=== PATIENT | male | born 1950 | race Asian ===

== ENCOUNTER 2017-09-07 11:42 | Inpatient (IN) | payer OTHER ==
[2017-09-07] MEDS ORDERED: SODIUM CHLORIDE 1,000 ML IV STA ×2 (12:28→13:33)
[2017-09-07 12:58] LABS: BASO % 0.2 % (0-2.0); HEMATOCRIT 45.1 % (35.4-49); HEMOGLOBIN 14.8 GM/dL (11.7-16.9); LYMPH % 9.1 % (8-40); MCH 30.5 pg (25.7-33.7); MCHC 32.9 g/dl (32.0-35.9); MEAN CELL VOLUME 92.9 fl (80-96); MEAN PLT VOLUME 9.3 fl (7.5-11.1); MONO % 7.7 % (3.8-10.2); PLATELET COUNT 98 K/MM3 (134-434); RBC 4.86 M/mm3 (4.00-5.60); RDW 13.5 % (11.9-15.9); WHITE BLOOD COUNT 15.1 K/mm3 (4.0-10.0)
[2017-09-07 13:04] LABS: VENOUS PC02 39.4 mmHg (38-52); VENOUS PH 7.37 (7.32-7.42); VENOUS PO2 33.5 mmHg (28-48)
[2017-09-07] MEDS ORDERED: CLINDAMYCIN 600MG PREMIX IVPB 600 MG/50 ML BAG IVPB ONE ×2 (13:05→13:11)
[2017-09-07 13:19] LABS: ALBUMIN 3.6 g/dl (3.4-5.0); ANION GAP 10 (8-16); BILIRUBIN,TOTAL 1.9 mg/dL (0.2-1.0); BLOOD UREA NITROGEN 33 mg/dL (7-18); CALCIUM 8.9 mg/dL (8.5-10.1); CHLORIDE 101 mmol/L (98-107); CO2 22 mmol/L (21-32); CREATININE 1.5 mg/dL (0.7-1.3); GLUCOSE,RANDOM 157 mg/dL (74-106); SGPT/ALT 21 U/L (12-78); SODIUM 133 mmol/L (136-145); TOT PROT 8.4 g/dl (6.4-8.2)
[2017-09-07 13:21] LABS: ALK PHOS 64 U/L (45-117)
[2017-09-07 13:25] LABS: POTASSIUM 4.7 mmol/L (3.5-5.1); SGOT/AST 29 U/L (15-37)
--- NOTE | 2017-09-07 13:34 | PDOC ---
History of Present Illness - General Chief Complaint: Edema Stated Complaint: SWELLING LEG Time Seen by Provider: 09/07/17 11:53 History Source: Patient Exam Limitations: No Limitations - History of Present Illness Initial Comments: 09/07/17 13:36 66-year-old male presents the ED with complaints of worsening left lower extremity redness swelling and pain for the past 3 days. Patient states was also placed on prednisone recently secondary to spinal stenosis that was recently diagnosed with an MRI of the lumbar spine. Patient does have history of prostate cancer developing a DVT which required anticoagulation therapy then IVC placement. Patient denies chest pain presently, fever, chills, shortness of breath or palpitations. Timing/Duration: getting worse Severity: moderate Associated Symptoms: reports: weakness. denies: fever/chills, nausea/vomiting Past History - Past Medical History Allergies/Adverse Reactions: Allergies Allergy/AdvReac Type Severity Reaction Status Date / Time No Known Allergies Allergy Verified 09/07/17 12:10 Home Medications: Ambulatory Orders Atorvastatin Ca [Lipitor] 10 mg PO HS 09/07/17 Clomiphene Citrate 50 mg PO DAILY 09/07/17 Linaclotide [Linzess] 145 mcg PO DAILY 09/07/17 Oxycodone HCl 5 mg PO DAILY 09/07/17 Prednisone 10 mg PO DAILY 09/07/17 - Suicide/Smoking/Psychosocial Hx Smoking History: Never smoked Have you smoked in the past 12 months: No Information on smoking cessation initiated: No Hx Alcohol Use: No Drug/Substance Use Hx: No Patient Lives Alone: No Lives with/in: spouse/SO Review of Systems - Review of Systems Able to Perform ROS?: Yes Constitutional: No: Symptoms Reported HEENTM: No: Symptoms Reported Respiratory: No: Symptoms reported Cardiac (ROS): No: Symptoms Reported ABD/GI: No: Symptoms Reported : No: Symptoms Reported Musculoskeletal: Yes: Back Pain Integumentary: Yes: Change in Color, Erythema Neurological: No: Symptoms reported Hematologic/Lymphatic: Yes: See HPI *Physical Exam - Vital Signs Last Vital Signs Temp Pulse Resp BP Pulse Ox 98.9 F 102 H 18 122/88 100 09/07/17 12:10 09/07/17 12:10 09/07/17 12:10 09/07/17 12:10 09/07/17 12:10 - Physical Exam General Appearance: Yes: Nourished, Appropriately Dressed. No: Apparent Distress HEENT: negative: Pale Conjunctivae Neck: positive: Supple Respiratory/Chest: positive: Lungs Clear, Normal Breath Sounds. negative: Respiratory Distress, Accessory Muscle Use Cardiovascular: positive: Regular Rhythm, Tachycardia. negative: Murmur Vascular Pulses: Dorsalis-Pedis (R): 2+, Doralis-Pedis (L): 1+ Gastrointestinal/Abdominal: positive: Soft. negative: Tenderness Extremity: positive: Normal Capillary Refill, Normal Range of Motion, Tender ( generalized lower extremity distal of patella), Calf Tenderness (negative Homans ) Integumentary: positive: Erythema (with 2+ nonpitting edema of the left lower extremity. area with increased warmth) Neurologic: positive: Motor Strength /5 ED Treatment Course - LABORATORY CBC & Chemistry Diagram: 09/07/17 12:50 09/07/17 12:50 - ADDITIONAL ORDERS Additional order review: Laboratory Results 09/07/17 12:23 VBG pH 7.37 POC VBG pCO2 39.4 POC VBG pO2 33.5 Mixed VBG HCO3 22.4 - RADIOLOGY Radiology Studies Ordered: Category Date Time Status CHEST X-RAY PORTABLE* [RAD] Stat Radiology 09/07/17 12:23 Ordered DUPLEX VASCUL US-1 LEG [US] Stat Ultrasound 09/07/17 13:05 Ordered Medical Decision Making - Medical Decision Making 09/07/17 12:44 66-year-old male with history of prostate state presents with redness and swelling to the left lower extremity the past 3 days. As per son has been more sedentary recently secondary to low back pain but concerning for DVT due to history. Patient on exam had increased warmth redness and swelling to the left lower extremity along with 1+ decreased pedal pulses to the left foot. Patient ordered for septic workup including IV clindamycin, and duplex arterial and vascular of the left lower extremity, 09/07/17 13:34 Chest x-ray shows no acute pathology. Patient ordered for second bag of IV fluid. Laboratory Tests 09/07/17 09/07/17 09/07/17 12:50 12:50 12:50 WBC 15.1 H Hgb 14.8 Hct 45.1 Plt Count 98 L Neutrophils % 83.0 H Sodium 133 L Potassium 4.7 Chloride 101 Carbon Dioxide 22 Anion Gap 10 BUN 33 H Creatinine 1.5 H Random Glucose 157 H Lactic Acid 2.1 H* Total Bilirubin 1.9 H Troponin I < 0.02 Total Protein 8.4 H 09/07/17 13:58 DVT shows extensive acute DVT in the left lower extremity involving the common femoral, superficial femoral vein extending to and including the popliteal vein. It is undetermined whether this process involves the calf veins. There is no Dangelo's cyst. 09/07/17 14:[address] Skaggs and accepted to service to [facility]. He states that he will consult vascular oncology *DC/Admit/Observation/Transfer Diagnosis at time of Disposition: DVT (deep venous thrombosis) Sepsis Qualifiers: Sepsis type: sepsis due to unspecified organism Qualified Code(s): A41.9 - Sepsis, unspecified organism Cellulitis Qualifiers: Site of cellulitis: extremity Site of cellulitis of extremity: lower extremity - Discharge Dispostion Admit: Yes - Referrals - Patient Instructions - Post Discharge Activity
[2017-09-07 13:39] LABS: URINE APPEARANCE SLCLOUDY; URINE BILIRUBIN NEGATIVE (NEGATIVE); URINE BLOOD 2+ (NEGATIVE); URINE COLOR YELLOW; URINE GLUCOSE (UA) 1+ (NEGATIVE); URINE KETONE TRACE (NEGATIVE); URINE LEUK ESTERASE NEGATIVE (NEGATIVE); URINE NITRITE NEGATIVE (NEGATIVE); URINE UROBILINOGEN NEGATIVE mg/dL (0.2-1.0)
[2017-09-07 13:46] LABS: URINE PROTEIN 1+ (NEGATIVE)
[2017-09-07 13:48] LABS: GRANULAR CASTS 7 /lpf; URINE MUCUS RARE
[2017-09-07 13:49] LABS: INR 1.06 (0.82-1.09)
[2017-09-07 13:51] LABS: ACTIVATED PTT 21.9 SECONDS (26.9-34.4)
[2017-09-07] MEDS ORDERED: ENOXAPARIN NA (PORCINE) 120 MG/0.8 ML DISP.SYRIN SQ SCH (14:15)
[2017-09-07] MEDS ORDERED: ENOXAPARIN NA (PORCINE) 30 MG/0.3 ML DISP.SYRIN SQ ONE (14:17)
[2017-09-07] MEDS ORDERED: ENOXAPARIN NA (PORCINE) 100 MG/1 ML DISP.SYRIN SQ ONE (14:17)
[2017-09-07] MEDS ORDERED: morphine CARPU-JECT 8 MG/1 ML DISP.SYRIN IVPUSH PRN (14:43)
[2017-09-07] MEDS ORDERED: ACETAMINOPHEN 325 MG TABLET (FP) PO PRN (14:43)
--- NOTE | 2017-09-07 14:54 | HP ---
Admitting History and Physical - Primary Care Physician PCP: Dayton Skaggs - Admission Chief Complaint: pain/ heaviness in legs History of Present Illness: 66-year-old male send the ED with complaints of worsening left lower extremity redness swelling and pain pt recently seen in office for back pain urgent mri ls spine showed sever L4-5 Stenosis pt called me last night -- says legs are now getting swollen and heavier i advised to come to er right away- concern of dvt as he h/o dvt-- on right lower extremity- 2008--also filter was placed. and prostate cancer Patient denies chest pain presently, fever, chills, shortness of breath or palpitations. u/s confirmed extensive dvt left side with cellulitis -- given lovenox in er as well as clindamycin pt to be admitted to hospital lab work also showed increased wbcs/ lactic acid pt seen by me in er - discussed with er physician also. History Source: Patient Limitations to Obtaining History: No Limitations - Past Medical History Cardiovascular: No: HTN Heme/Onc: Yes: Other (dvt/ prostate ca) - Past Surgical History Additional Past Surgical History: ivc filter - Smoking History Smoking history: Current some day smoker Have you smoked in the past 12 months: Yes - Alcohol/Substance Use Hx Alcohol Use: No - Social History Usual Living Arrangement: Yes: With Spouse Home Medications - Allergies Allergies/Adverse Reactions: Allergies Allergy/AdvReac Type Severity Reaction Status Date / Time No Known Allergies Allergy Verified 09/07/17 12:10 - Home Medications Home Medications: Ambulatory Orders Atorvastatin Ca [Lipitor] 10 mg PO HS 09/07/17 Clomiphene Citrate 50 mg PO DAILY 09/07/17 Linaclotide [Linzess] 145 mcg PO DAILY 09/07/17 Oxycodone HCl 5 mg PO DAILY 09/07/17 Prednisone 10 mg PO DAILY 09/07/17 Family Disease History - Family Disease History Family History: Unremarkable Review of Systems - Review of Systems Constitutional: reports: Weakness Eyes: reports: No Symptoms HENT: reports: No Symptoms. denies: Gingival Bleeding Neck: reports: No Symptoms Cardiovascular: reports: No Symptoms Respiratory: reports: No Symptoms Gastrointestinal: reports: Constipation Musculoskeletal: reports: Back Pain, Extremity Pain Integumentary: reports: Erythema Neurological: reports: No Symptoms Psychiatric: reports: No Symptoms Physical Examination Vital Signs: Vital Signs Temperature 98.9 F 09/07/17 12:10 Pulse Rate 99 H 09/07/17 12:12 Respiratory Rate 18 09/07/17 12:10 Blood Pressure 122/88 09/07/17 12:10 O2 Sat by Pulse Oximetry (%) 100 09/07/17 12:12 Constitutional: Yes: No Distress, Calm Neck: Yes: Supple Cardiovascular: Yes: Regular Rate and Rhythm Respiratory: Yes: CTA Bilaterally Gastrointestinal: Yes: Normal Bowel Sounds, Soft Extremities: Yes: Erythema (left lower extremitiy) Edema: LLE: 2+ Peripheral Pulses WNL: Yes Neurological: Yes: Alert Psychiatric: Yes: Alert Labs: CBC, BMP 09/07/17 12:50 09/07/17 12:50 Imaging - Results Chest X-ray: Report Reviewed Ultrasound: Report Reviewed Problem List - Problems (1) Elevated lactic acid level Code(s): R79.89 - OTHER SPECIFIED ABNORMAL FINDINGS OF BLOOD CHEMISTRY (2) Dehydration Code(s): E86.0 - DEHYDRATION (3) Renal insufficiency, mild Code(s): N28.9 - DISORDER OF KIDNEY AND URETER, UNSPECIFIED (4) Cellulitis Code(s): L03.90 - CELLULITIS, UNSPECIFIED Qualifiers: Site of cellulitis: extremity Site of cellulitis of extremity: lower extremity (5) DVT (deep venous thrombosis) Code(s): I82.409 - ACUTE EMBOLISM AND THOMBOS UNSP DEEP VN UNSP LOWER EXTREMITY (6) Prostate CA Code(s): C61 - MALIGNANT NEOPLASM OF PROSTATE (7) Spinal stenosis Code(s): M48.00 - SPINAL STENOSIS, SITE UNSPECIFIED (8) Constipation Code(s): K59.00 - CONSTIPATION, UNSPECIFIED Assessment/Plan admit pain control fluids repeat lactic acid level abx- change to rocephin - concern for c diff lovenox + coumadin hematology consult laxatives neuro surgical consult for spinal stenosis discussed in detail with pt / son. will follow time spend - 40 min in examining/ documenting and coordinating care
[2017-09-07] MEDS ORDERED: BISACODYL 10 MG SUPP.RECT PR ONE (15:53)
--- NOTE | 2017-09-07 16:56 | EKG ---
Test Reason : Blood Pressure : / mmHG Vent. Rate : 103 BPM Atrial Rate : 103 BPM P-R Int : 124 ms QRS Dur : 074 ms QT Int : 302 ms P-R-T Axes : 025 -01 075 degrees QTc Int : 395 ms SINUS TACHYCARDIA NONSPECIFIC T WAVE ABNORMALITY ABNORMAL ECG NO PREVIOUS ECGS AVAILABLE Confirmed by GOLDY BAZAN MD ([id number]) on 09/07/2017 4:56:32 PM Referred By: Confirmed By:GOLDY BAZAN MD
[2017-09-07] MEDS: D5-1/2NS+20 MEQ KCL - 20 MEQ/1,000 ML INFUS.BAG IV SCH (19:09)
[2017-09-07] MEDS ORDERED: CEFTRIAXONE 2 GM/100 ML BAG IVPB ONE (19:10)
[2017-09-07] MEDS: CEFTRIAXONE 2 GM in DEXTROSE 5%-WATER - 100 ML IVPB SCH (19:11)
[2017-09-07 20:35] VITALS: BMI 28.0
[2017-09-07] MEDS: WARFARIN NA 5 MG TABLET (UD) PO SCH (21:20)
[2017-09-07] MEDS: DOCUSATE SODIUM 100 MG CAPSULE (FP) PO SCH (21:21)
[2017-09-07] MEDS: ATORVASTATIN CA 10 MG TABLET (FP) PO SCH (21:22)
[2017-09-08] MEDS ORDERED: PT OWN MED DRAWER 7, Y5N ONE (02:52)
[2017-09-08] MEDS: D5-1/2NS+20 MEQ KCL - 20 MEQ/1,000 ML INFUS.BAG IV SCH ×3 (03:00→16:36)
[2017-09-08] MEDS: DOCUSATE SODIUM 100 MG CAPSULE (FP) PO SCH ×3 (05:56→21:40)
[2017-09-08] MEDS: oxyCODONE HCL 5 MG TABLET PO PRN ×2 (06:00→16:31)
[2017-09-08 08:32] LABS: HEMATOCRIT 39.1 % (35.4-49); HEMOGLOBIN 12.8 GM/dL (11.7-16.9); MCH 30.5 pg (25.7-33.7); MCHC 32.7 g/dl (32.0-35.9); MEAN CELL VOLUME 93.2 fl (80-96); MEAN PLT VOLUME 9.5 fl (7.5-11.1); PLATELET COUNT 106 K/MM3 (134-434); RBC 4.19 M/mm3 (4.00-5.60); WHITE BLOOD COUNT 12.4 K/mm3 (4.0-10.0)
[2017-09-08 08:46] LABS: INR 1.12 (0.82-1.09); PROTHROMBIN TIME (PATIENT) 12.6 SEC (9.98-11.88)
[2017-09-08 09:06] LABS: ALBUMIN 2.9 g/dl (3.4-5.0); ANION GAP 8 (8-16); BLOOD UREA NITROGEN 22 mg/dL (7-18); CALCIUM 8.3 mg/dL (8.5-10.1); CHLORIDE 106 mmol/L (98-107); CO2 22 mmol/L (21-32); CREATININE 1.1 mg/dL (0.7-1.3); GLUCOSE,RANDOM 130 mg/dL (74-106); MAGNESIUM 2.2 mg/dL (1.8-2.4); POTASSIUM 3.9 mmol/L (3.5-5.1); SGOT/AST 16 U/L (15-37); SGPT/ALT 19 U/L (12-78); SODIUM 136 mmol/L (136-145)
[2017-09-08 09:07] LABS: ALK PHOS 51 U/L (45-117); BILIRUBIN,TOTAL 1.3 mg/dL (0.2-1.0); TOT PROT 6.7 g/dl (6.4-8.2)
[2017-09-08] MEDS: CEFTRIAXONE 2 GM in DEXTROSE 5%-WATER - 100 ML IVPB SCH (09:40)
[2017-09-08] MEDS: POLYETHYLENE GLYCOL 3350 119 GM BTL PO SCH (09:40)
[2017-09-08] MEDS: ENOXAPARIN NA (PORCINE) 100 MG/1 ML DISP.SYRIN SQ SCH ×2 (09:40→21:40)
[2017-09-08] MEDS ORDERED: CLOMIPHENE CITRATE 50 MG PO SCH (10:00)
[2017-09-08 10:37] LABS: ACANTHOCYTES 0; ANISOCYTOSIS 0; HELMET CELLS 0; HOWELL-JOLLY BODIES 0; MACROCYTOSIS 0; OVALOCYTE 0; PLATELET ESTIMATE DECREASED; SICKELED CELLS 0; TARGET CELLS 0; TEAR DROP CELLS 0; TOXIC GRANULATION 0
--- NOTE | 2017-09-08 11:07 | PN ---
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
--- NOTE | 2017-09-08 11:37 | PN ---
Progress Note (short form) - Note Progress Note: pt feels better decreased pain. heaviness in legs persists c/c - constipation. denies cp/ sob/ abd pain. back pain better Vital Signs Temp 98.8 F 09/08/17 06:00 Pulse 90 09/08/17 06:00 Resp 16 09/08/17 06:00 BP 127/79 09/08/17 06:00 Pulse Ox 98 09/07/17 20:40 Intake & Output 09/07/17 09/07/17 09/08/17 11:59 23:59 11:59 Intake Total 1000 Balance 1000 Weight 195 lb 7 oz Intake: IV 1000 D5-1/2NS+20 MEQ KCL - 20 1000 meq In 1,000 ml @ 100 mls /hr IV ASDIR [facility] Rx#: [id number] Other: Voiding Method Urinal Urinal Bowel Movement No Height 5 ft 10 in Body Mass Index (BMI) 28.0 Weight Measurement Method Built in [facility] Active Medications Acetaminophen (Tylenol -) 650 mg PO Q4H PRN PRN Reason: FEVER OR PAIN Atorvastatin Calcium (Lipitor -) 10 mg PO HS [facility] Last Admin: 09/07/17 21:22 Dose: Not Given Docusate Sodium (Colace -) 100 mg PO TID [facility] Last Admin: 09/08/17 05:56 Dose: 100 mg Enoxaparin Sodium (Lovenox -) 100 mg SQ BID [facility] Last Admin: 09/08/17 09:40 Dose: 100 mg Potassium Chloride/Dextrose/Sod Cl (D5-1/2ns+20 Meq Kcl -) 20 meq in 1,000 mls @ 100 mls/hr IV ASDIR [facility] [place] Last Admin: 09/08/17 03:00 Dose: 100 mls/hr Ceftriaxone Sodium 2 gm/ (Dextrose) 100 mls @ 200 mls/hr IVPB DAILY [facility] [place] Last Admin: 09/08/17 09:40 Dose: 200 mls/hr Morphine Sulfate (Morphine Sulfate) 2 mg IVPUSH Q4H PRN PRN Reason: BACK PAIN Non-Formulary Medication (Clomiphene Citrate [Clomiphene Citrate]) 50 mg PO DAILY [facility] Oxycodone HCl (Roxicodone -) 10 mg PO Q4H PRN PRN Reason: PAIN Last Admin: 09/08/17 06:00 Dose: 10 mg Polyethylene Glycol (Miralax (For Daily Use) -) 17 gm PO DAILY [facility] [place] Last Admin: 09/08/17 09:40 Dose: 17 gm Warfarin Sodium (Coumadin -) 5 mg PO DAILY@1800 [facility] Last Admin: 09/07/17 21:20 Dose: 5 mg CBC, BMP 09/08/17 07:00 09/08/17 07:00 Physical Examination Constitutional: Yes: No Distress, Calm/ comfortable Neck: Yes: Supple/ no jvd Cardiovascular: Yes: Regular Rate and Rhythm Respiratory: Yes: CTA Bilaterally Gastrointestinal: Yes: Normal Bowel Sounds, Soft Extremities: Yes: Erythema (left lower extremitiy)/ swelling + Edema: LLE: 2+ Peripheral Pulses WNL: Yes Neurological: Yes: Alert Psychiatric: Yes: Alert Imaging - Results Chest X-ray: Report Reviewed Ultrasound: Report Reviewed Assessment/Plan acute left lower extremity dvt with h/o dvt in right leg with h/o prostate ca pain control fluids abx- lovenox + coumadin hematology consult--pending laxatives neuro surgical consult for spinal stenosis-- reviewed / discussed daily oob - chair physical therapy will follow Problem List - Problems (1) Elevated lactic acid level Code(s): R79.89 - OTHER SPECIFIED ABNORMAL FINDINGS OF BLOOD CHEMISTRY (2) Dehydration Code(s): E86.0 - DEHYDRATION (3) Renal insufficiency, mild Code(s): N28.9 - DISORDER OF KIDNEY AND URETER, UNSPECIFIED (4) Cellulitis Code(s): L03.90 - CELLULITIS, UNSPECIFIED Qualifiers: Site of cellulitis: extremity Site of cellulitis of extremity: lower extremity (5) DVT (deep venous thrombosis) Code(s): I82.409 - ACUTE EMBOLISM AND THOMBOS UNSP DEEP VN UNSP LOWER EXTREMITY (6) Prostate CA Code(s): C61 - MALIGNANT NEOPLASM OF PROSTATE (7) Spinal stenosis Code(s): M48.00 - SPINAL STENOSIS, SITE UNSPECIFIED (8) Constipation Code(s): K59.00 - CONSTIPATION, UNSPECIFIED
--- NOTE | 2017-09-08 15:17 | CONSULT ---
Consult Consult Specialty:: hematology Referred by:: Reason for Consultation:: DVT - History of Present Illness History of Present Illness: 66-year-old male presents the ED with complaints of worsening left lower extremity redness swelling and pain for the past 3 days. Patient states was also placed on prednisone recently secondary to spinal stenosis that was recently diagnosed with an MRI of the lumbar spine. Patient does have history of prostate cancer developing a DVT which required anticoagulation therapy then IVC placement. Patient denies chest pain presently, fever, chills, shortness of breath or palpitations. - History Source History Provided By: Patient, Medical Record Limitations to Obtaining History: No Limitations - Past Medical History Cardio/Vascular: No: HTN - Alcohol/Substance Use Hx Alcohol Use: No - Smoking History Smoking history: Never smoked Have you smoked in the past 12 months: No Home Medications - Allergies Allergies/Adverse Reactions: Allergies Allergy/AdvReac Type Severity Reaction Status Date / Time No Known Allergies Allergy Verified 09/07/17 12:10 - Home Medications Home Medications: Ambulatory Orders Atorvastatin Ca [Lipitor] 10 mg PO HS 09/07/17 Clomiphene Citrate 50 mg PO DAILY 09/07/17 Linaclotide [Linzess] 145 mcg PO DAILY 09/07/17 Oxycodone HCl 5 mg PO DAILY 09/07/17 Prednisone 10 mg PO DAILY 09/07/17 Review of Systems - Review of Systems Constitutional: denies: Chills, Diaphoresis, Fever, Unintentional Wgt. Loss, Weakness Neck: reports: No Symptoms Cardiovascular: reports: No Symptoms. denies: Chest Pain Respiratory: denies: SOB, SOB on Exertion, Wheezing Gastrointestinal: reports: Constipation. denies: Rectal Bleeding Musculoskeletal: reports: Back Pain Integumentary: reports: No Symptoms Neurological: reports: No Symptoms Physical Exam Vital Signs: Vital Signs Temperature 98.8 F 09/08/17 06:00 Pulse Rate 90 09/08/17 06:00 Respiratory Rate 16 09/08/17 06:00 Blood Pressure 127/79 09/08/17 06:00 O2 Sat by Pulse Oximetry (%) 98 09/07/17 20:40 Constitutional: Yes: Well Nourished, No Distress, Calm Eyes: Yes: Conjunctiva Clear HENT: Yes: Atraumatic, Normocephalic Neck: Yes: Supple, Trachea Midline Cardiovascular: Yes: Regular Rate and Rhythm Respiratory: Yes: Regular, CTA Bilaterally Gastrointestinal: Yes: Soft Extremities: Yes: Calf Tenderness, Other (LLE>RLE. asymmetry Swollen, mild tenderness) Edema: Yes Edema: LLE: 2+ Labs: CBC, BMP 09/08/17 07:00 09/08/17 07:00 Imaging - Results Ultrasound: Report Reviewed Problem List - Problems (1) DVT (deep venous thrombosis) Code(s): I82.409 - ACUTE EMBOLISM AND THOMBOS UNSP DEEP VN UNSP LOWER EXTREMITY Qualifiers: DVT location: lower extremity Laterality: left (2) Prostate CA Code(s): C61 - MALIGNANT NEOPLASM OF PROSTATE (3) Renal insufficiency, mild Code(s): N28.9 - DISORDER OF KIDNEY AND URETER, UNSPECIFIED (4) Sepsis Code(s): A41.9 - SEPSIS, UNSPECIFIED ORGANISM Qualifiers: Sepsis type: sepsis due to unspecified organism Qualified Code(s): A41.9 - Sepsis, unspecified organism (5) Thrombocytopenia Code(s): D69.6 - THROMBOCYTOPENIA, UNSPECIFIED Assessment/Plan History of Right LE DVT in 2008 s/p RPR for prostate Ca [place] [facility] ( s/p Coumadin for 6m and also an IVC filter ) h/o Prostate ca s/p RPR in 2008 and last PSA as per pt is 0 (follows at [facility]) 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 Leucocytosis/Thrombocytopenia Rec: Vascular c/s given the extensive DVT will c/w systemic AC with Heparin to Coumadin, INR monitoring, might need to hold if any procedures planned, might consider NOACs ( can do this in the OP setting) Etiology : uncertain ,?immobility from his pain , ?underlying hypercoag status ( to be w/u as an OP, now already on full ac) ?malignancy , will re-check PSA, CT scan a/p, also there are reports in literature suggesting clomifene which is used as an alternative to testosterone therapy for stimulating the endogenous androgen production pathway can also be a cause, therefore advised pt for now to hold off until he sees his doctor. IVF prior to CT Duration of AC : Would consider that he would need indefinite AC taking into consideration this is a second episode. would need to repeat an US in about a few days post d/c. f/u : Family (pt and ) works at [facility] , all his Oncological care is at [facility] ( Surg[facility]c and MedOnc) , they were advised to inform their physicians about the admission and also they will see a benign rn wound at [facility]. Leucocytosis/Thrombocytopenia: could be reactive and consumptive respectively, will continue to monitor prior to ordering other w/u. Not HIT. discussed the plan with pt / ( clinical lab researcher) /daughter (RN)/ son (Med student) alexis RN will follow
[2017-09-08] MEDS: WARFARIN NA 5 MG TABLET (UD) PO SCH (17:54)
[2017-09-08] MEDS: ATORVASTATIN CA 10 MG TABLET (FP) PO SCH (21:40)
[2017-09-09] MEDS: D5-1/2NS+20 MEQ KCL - 20 MEQ/1,000 ML INFUS.BAG IV SCH ×2 (01:45→09:37)
[2017-09-09] MEDS: DOCUSATE SODIUM 100 MG CAPSULE (FP) PO SCH ×3 (06:11→21:22)
[2017-09-09 08:31] LABS: HEMATOCRIT 40.9 % (35.4-49); HEMOGLOBIN 13.3 GM/dL (11.7-16.9); MCH 30.3 pg (25.7-33.7); MCHC 32.4 g/dl (32.0-35.9); MEAN CELL VOLUME 93.4 fl (80-96); MEAN PLT VOLUME 9.1 fl (7.5-11.1); PLATELET COUNT 142 K/MM3 (134-434); RBC 4.38 M/mm3 (4.00-5.60); RDW 13.2 % (11.9-15.9); WHITE BLOOD COUNT 12.1 K/mm3 (4.0-10.0)
[2017-09-09 09:00] LABS: ALK PHOS 52 U/L (45-117); ANION GAP 10 (8-16); BILIRUBIN,TOTAL 1.2 mg/dL (0.2-1.0); BLOOD UREA NITROGEN 15 mg/dL (7-18); CALCIUM 8.7 mg/dL (8.5-10.1); CHLORIDE 105 mmol/L (98-107); CO2 24 mmol/L (21-32); CREATININE 1.2 mg/dL (0.7-1.3); GLUCOSE,RANDOM 129 mg/dL (74-106); LDH 210 U/L (87-241); POTASSIUM 4.2 mmol/L (3.5-5.1); SGOT/AST 15 U/L (15-37); SGPT/ALT 22 U/L (12-78); SODIUM 139 mmol/L (136-145); TOT PROT 6.9 g/dl (6.4-8.2)
[2017-09-09 09:06] LABS: INR 1.23 (0.82-1.09); PROTHROMBIN TIME (PATIENT) 13.9 SEC (9.98-11.88)
[2017-09-09 09:21] LABS: BILIRUBIN,DIRECT 0.3 mg/dL (0.0-0.2)
[2017-09-09] MEDS ORDERED: PT OWN MED DRAWER 7, Y5N ONE (09:34)
[2017-09-09] MEDS: POLYETHYLENE GLYCOL 3350 119 GM BTL PO SCH (09:35)
[2017-09-09] MEDS: ENOXAPARIN NA (PORCINE) 100 MG/1 ML DISP.SYRIN SQ SCH (09:36)
[2017-09-09] MEDS: CEFTRIAXONE 2 GM in DEXTROSE 5%-WATER - 100 ML IVPB SCH (09:36)
[2017-09-09] MEDS ORDERED: SODIUM PHOSPHATE/NA BIPHOS 133 ML ENEMA PR PRN (10:13)
--- NOTE | 2017-09-09 10:22 | PN ---
Progress Note (short form) - Note Progress Note: patient seen and examined slight improvement heaviness in the legs persists Back pain much better Discussed with oncologist--CT abdomen and pelvis was ordered On Lovenox and Coumadin Chief complaint constipation and denies chest pain or shortness of breath Vital Signs Temp 98.8 F 09/09/17 08:13 Pulse 88 09/09/17 08:13 Resp 18 09/09/17 08:13 BP 121/75 09/09/17 08:13 Pulse Ox 98 09/07/17 20:40 Intake & Output 09/08/17 09/08/17 09/09/17 11:59 23:59 11:59 Intake Total 1000 1400 1200 Balance 1000 1400 1200 Intake: IV 1000 1100 1200 D5-1/2NS+20 MEQ KCL - 20 1000 1100 1200 meq In 1,000 ml @ 100 mls /hr IV ASDIR [facility] Rx#: [id number] IVPB 100 Oral 200 Other: Voiding Method Urinal Urinal Urinal Bowel Movement No Active Medications Acetaminophen (Tylenol -) 650 mg PO Q4H PRN PRN Reason: FEVER OR PAIN Atorvastatin Calcium (Lipitor -) 10 mg PO HS [facility] Last Admin: 09/08/17 21:40 Dose: 10 mg Docusate Sodium (Colace -) 100 mg PO TID [facility] Last Admin: 09/09/17 06:11 Dose: 100 mg Enoxaparin Sodium (Lovenox -) 100 mg SQ BID [facility] Last Admin: 09/09/17 09:36 Dose: 100 mg Potassium Chloride/Dextrose/Sod Cl (D5-1/2ns+20 Meq Kcl -) 20 meq in 1,000 mls @ 100 mls/hr IV ASDIR [facility] Last Admin: 09/09/17 09:37 Dose: 100 mls/hr Ceftriaxone Sodium 2 gm/ (Dextrose) 100 mls @ 200 mls/hr IVPB DAILY [facility] Last Admin: 09/09/17 09:36 Dose: 200 mls/hr Morphine Sulfate (Morphine Sulfate) 2 mg IVPUSH Q4H PRN PRN Reason: BACK PAIN Non-Formulary Medication (Clomiphene Citrate [Clomiphene Citrate]) 50 mg PO DAILY [facility] Non-Formulary Medication (Patient's Own Med) 1 each PO DAILY [facility] Oxycodone HCl (Roxicodone -) 10 mg PO Q4H PRN PRN Reason: PAIN Last Admin: 09/08/17 16:31 Dose: 10 mg Polyethylene Glycol (Miralax (For Daily Use) -) 17 gm PO DAILY [facility] Last Admin: 09/09/17 09:35 Dose: 17 gm Sodium Phosphate (Fleet Adult Rectal Enema -) 133 ml [place] DAILY PRN PRN Reason: CONSTIPATION Warfarin Sodium (Coumadin -) 5 mg PO DAILY@1800 [facility] Last Admin: 09/08/17 17:54 Dose: 5 mg CBC, BMP 09/09/17 07:45 09/09/17 07:45 Microbiology 09/07/17 13:08 Blood Culture - Preliminary Blood - Peripheral Venous NO GROWTH OBTAINED AFTER 24 HOURS, INCUBATION TO CONTINUE FOR 4 DAYS. 09/07/17 13:08 Blood Culture - Preliminary Blood - Peripheral Venous NO GROWTH OBTAINED AFTER 24 HOURS, INCUBATION TO CONTINUE FOR 4 DAYS. Physical Examination Constitutional: Yes: No Distress, Calm/ comfortable Neck: Yes: Supple/ no jvd Cardiovascular: Yes: Regular Rate and Rhythm Respiratory: Yes: CTA Bilaterally Gastrointestinal: Yes: Normal Bowel Sounds, Soft Extremities: Yes: Erythema (left lower extremity)/ swelling + Edema: LLE: 2+ Peripheral Pulses WNL: Yes Neurological: Yes: Alert Psychiatric: Yes: Alert Imaging - Results Chest X-ray: Report Reviewed Ultrasound: Report Reviewed Assessment/Plan acute left lower extremity dvt with h/o dvt in right leg with h/o prostate ca pain control abx- lovenox + coumadin hematology on case laxatives Fleet Enema when necessary linzess CT abdomen and pelvis ordered by drilling manager Due to extensive DVT--- will check for pulmonary embolism also although patient has no shortness of breath. daily oob - chair physical therapy vascular consult pending will follow Problem List - Problems (1) Elevated lactic acid level Code(s): R79.89 - OTHER SPECIFIED ABNORMAL FINDINGS OF BLOOD CHEMISTRY (2) Dehydration Code(s): E86.0 - DEHYDRATION (3) Renal insufficiency, mild Code(s): N28.9 - DISORDER OF KIDNEY AND URETER, UNSPECIFIED (4) Cellulitis Code(s): L03.90 - CELLULITIS, UNSPECIFIED Qualifiers: Site of cellulitis: extremity Site of cellulitis of extremity: lower extremity (5) DVT (deep venous thrombosis) Code(s): I82.409 - ACUTE EMBOLISM AND THOMBOS UNSP DEEP VN UNSP LOWER EXTREMITY Qualifiers: DVT location: lower extremity Laterality: left (6) Prostate CA Code(s): C61 - MALIGNANT NEOPLASM OF PROSTATE (7) Spinal stenosis Code(s): M48.00 - SPINAL STENOSIS, SITE UNSPECIFIED (8) Constipation Code(s): K59.00 - CONSTIPATION, UNSPECIFIED
[2017-09-09] MEDS: oxyCODONE HCL 5 MG TABLET PO PRN (10:35)
--- NOTE | 2017-09-09 11:08 | CONSULT ---
Consult Consult Specialty:: VAscular Surgery - History of Present Illness Chief Complaint: Left lower ext swelling. DVT on US - History Source Limitations to Obtaining History: No Limitations - Past Medical History Cardio/Vascular: No: HTN - Alcohol/Substance Use Hx Alcohol Use: No - Smoking History Smoking history: Never smoked Have you smoked in the past 12 months: No Home Medications - Allergies Allergies/Adverse Reactions: Allergies Allergy/AdvReac Type Severity Reaction Status Date / Time No Known Allergies Allergy Verified 09/07/17 12:10 - Home Medications Home Medications: Ambulatory Orders Atorvastatin Ca [Lipitor] 10 mg PO HS 09/07/17 Clomiphene Citrate 50 mg PO DAILY 09/07/17 Linaclotide [Linzess] 145 mcg PO DAILY 09/07/17 Oxycodone HCl 5 mg PO DAILY 09/07/17 Prednisone 10 mg PO DAILY 09/07/17 Review of Systems - Review of Systems Constitutional: reports: No Symptoms Eyes: reports: No Symptoms HENT: reports: No Symptoms Neck: reports: No Symptoms Cardiovascular: reports: No Symptoms Respiratory: reports: No Symptoms Gastrointestinal: reports: No Symptoms Genitourinary: reports: No Symptoms Breasts: reports: No Symptoms Reported Musculoskeletal: reports: Extremity Pain Integumentary: reports: No Symptoms Neurological: reports: No Symptoms Endocrine: reports: No Symptoms Hematology/Lymphatic: reports: No Symptoms Psychiatric: reports: No Symptoms Physical Exam Vital Signs: Vital Signs Temperature 98.8 F 09/09/17 08:13 Pulse Rate 88 09/09/17 08:13 Respiratory Rate 18 09/09/17 08:13 Blood Pressure 121/75 09/09/17 08:13 O2 Sat by Pulse Oximetry (%) 98 09/07/17 20:40 Constitutional: Yes: Well Nourished Eyes: Yes: WNL HENT: Yes: WNL Neck: Yes: WNL Cardiovascular: Yes: WNL Respiratory: Yes: WNL Gastrointestinal: Yes: WNL Musculoskeletal: Yes: WNL Extremities: Yes: WNL Edema: Yes Edema: LLE: 2+ Integumentary: Yes: WNL Neurological: Yes: WNL ...Motor Strength: WNL Psychiatric: Yes: WNL Labs: CBC, BMP 09/09/17 07:45 09/09/17 07:45 Imaging - Results Ultrasound: Report Reviewed, Image Reviewed Problem List - Problems (1) DVT (deep venous thrombosis) Code(s): I82.409 - ACUTE EMBOLISM AND THOMBOS UNSP DEEP VN UNSP LOWER EXTREMITY Qualifiers: DVT location: lower extremity Laterality: left Assessment/Plan LLE DVT 1. This is the pt's second episode. History of prostate cancer. Developed DVT in past and IVC filter is in place. Rec AC, probably at this point for life. 2. Leg elevation. -----> ambulation. Jose Logan DO
--- NOTE | 2017-09-09 16:42 | PN ---
Progress Note (short form) - Note Progress Note: Pt seen and examined. feels better than yesterday he says, seen by vascular. daughter at bedside. O/E: Constitutional: Yes: Well Nourished, No Distress, Calm Eyes: Yes: Conjunctiva Clear HENT: Yes: Atraumatic, Normocephalic Neck: Yes: Supple, Trachea Midline Cardiovascular: Yes: Regular Rate and Rhythm Respiratory: Yes: Regular, CTA Bilaterally Gastrointestinal: Yes: Soft Extremities: Yes: Calf Tenderness, Other (LLE>RLE. asymmetry Swollen, mild tenderness) Edema: Yes Edema: LLE: 2+, no signs of phlegmasia Last Vital Signs Temp Pulse Resp BP Pulse Ox 98.4 F 90 18 124/76 98 09/09/17 15:46 09/09/17 15:46 09/09/17 15:46 09/09/17 15:46 09/07/17 20:40 CBC, BMP 09/09/17 07:45 09/09/17 07:45 Current Medications Generic Name Dose Route Start Last Admin Trade Name Freq PRN Reason Stop Dose Admin Acetaminophen 650 mg 09/07/17 14:43 09/09/17 10:35 Tylenol - PO 650 mg Q4H PRN Administration FEVER OR PAIN Atorvastatin Calcium 10 mg 09/07/17 22:00 09/08/17 21:40 Lipitor - PO 10 mg HS TERESITA Administration Docusate Sodium 100 mg 09/07/17 22:00 09/09/17 15:13 Colace - PO 100 mg TID TERESITA Administration Enoxaparin Sodium 100 mg 09/08/17 10:00 09/09/17 09:36 Lovenox - SQ 100 mg BID TERESITA Administration Potassium Chloride/Dextrose/Sod Cl 20 meq in 1,000 mls @ 100 mls/hr 09/07/17 14:45 09/09/17 09:37 D5-1/2ns+20 Meq Kcl - IV 100 mls/hr ASDIR TERESITA Administration Ceftriaxone Sodium 2 gm/ 100 mls @ 200 mls/hr 09/07/17 15:00 09/09/17 09:36 Dextrose IVPB 200 mls/hr DAILY TERESITA Administration Morphine Sulfate 2 mg 09/07/17 14:43 Morphine Sulfate IVPUSH Q4H PRN BACK PAIN Non-Formulary Medication 1 each 09/09/17 10:30 Patient's Own Med PO DAILY TERESITA Oxycodone HCl 10 mg 09/07/17 14:43 09/09/17 10:35 Roxicodone - PO 10 mg Q4H PRN Administration PAIN Polyethylene Glycol 17 gm 09/08/17 10:00 09/09/17 09:35 Miralax (For Daily Use) - PO 17 gm DAILY TERESITA Administration Sodium Phosphate 133 ml 09/09/17 10:13 Fleet Adult Rectal Enema - [place] DAILY PRN CONSTIPATION Warfarin Sodium 5 mg 09/07/17 18:00 09/08/17 17:54 Coumadin - PO 5 mg DAILY@[address] scan reviewed vascular input noted d/w IR , mentioned that presently no catheter directed thrombolysis d/w Pulm,will see the pt stop warfarin continue close monitoring of the LE. 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 change to Heparin full dose with bolus weight based, in an event he might need a procedure (though no difference for efficacy, but seen in t1/2) after at least 2 days of PTT stability will start coumadin bridge for 4-5days . NOACs to be considered at a later time period. spoke to covering physician at [facility] [place] ,he indicated that if a procedure is planned he would entertain a transfer, regardless he would inform and who might give a phone call .( [phone] Dr.Karim López) Presently appears stable. platelets improved. would need a bone scan and mr/ct abdomen for the adrenal masses d/w Lila Cruz, RN tt>40min Problem List - Problems (1) DVT (deep venous thrombosis) Code(s): I82.409 - ACUTE EMBOLISM AND THOMBOS UNSP DEEP VN UNSP LOWER EXTREMITY Qualifiers: DVT location: lower extremity Laterality: left (2) Prostate CA Code(s): C61 - MALIGNANT NEOPLASM OF PROSTATE (3) Renal insufficiency, mild Code(s): N28.9 - DISORDER OF KIDNEY AND URETER, UNSPECIFIED (4) Sepsis Code(s): A41.9 - SEPSIS, UNSPECIFIED ORGANISM Qualifiers: Sepsis type: sepsis due to unspecified organism Qualified Code(s): A41.9 - Sepsis, unspecified organism (5) Thrombocytopenia Code(s): D69.6 - THROMBOCYTOPENIA, UNSPECIFIED
[2017-09-09] MEDS ORDERED: HEPARIN NA (PORCINE) 5,000 UNITS/ML 1ML VIAL IVPUSH PRN (17:12)
[2017-09-09] MEDS ORDERED: HEPARIN - 25,000 UNIT in SODIUM CHLORIDE 495 ML IV SCH ×2 (17:15→17:18)
[2017-09-09] MEDS: HEPARIN SOD,PORK IN 0.45% NACL 25,000 UNITS/500 ML INFUS.BAG IVPB SCH (17:35)
--- NOTE | 2017-09-09 17:35 | CON.PULM ---
Consult Consult Specialty:: PULM/CCM Referred by:: PMD - History of Present Illness Chief Complaint: LLE swelling and redness History of Present Illness: 66 M, history of Prostate CA treated by RPR [place] [facility] [place], now on clomiphene. . 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 Known spinal stenosis. Admitted via the ER due to increasing RLE and LLE swelling and redness. Found to have extensive LE VTE extending to the common femoral and IVC. No CP, SOB, hemoptysis, etc. Patient has had some increase in immobilization due to pain from his spinal stenosis. CTA: (suboptimal contrast opacification) thrombus RML & RLL. - History Source History Provided By: Patient Limitations to Obtaining History: No Limitations - Past Medical History Cardio/Vascular: No: HTN - Alcohol/Substance Use Hx Alcohol Use: No - Smoking History Smoking history: Never smoked Have you smoked in the past 12 months: No Home Medications - Allergies Allergies/Adverse Reactions: Allergies Allergy/AdvReac Type Severity Reaction Status Date / Time No Known Allergies Allergy Verified 09/07/17 12:10 - Home Medications Home Medications: Ambulatory Orders Atorvastatin Ca [Lipitor] 10 mg PO HS 09/07/17 Clomiphene Citrate 50 mg PO DAILY 09/07/17 Linaclotide [Linzess] 145 mcg PO DAILY 09/07/17 Oxycodone HCl 5 mg PO DAILY 09/07/17 Prednisone 10 mg PO DAILY 09/07/17 Review of Systems - Review of Systems Constitutional: denies: Chills, Fever, Lethargy, Loss of Appetite, Malaise, Night Sweats, Unintentional Wgt. Loss, Weakness Eyes: reports: No Symptoms HENT: reports: No Symptoms Neck: reports: No Symptoms Cardiovascular: reports: Edema. denies: Chest Pain, Palpitations, Shortness of Breath Respiratory: denies: Cough, Hemoptysis, Snoring, SOB, SOB on Exertion, Wheezing Gastrointestinal: reports: No Symptoms Genitourinary: reports: No Symptoms Breasts: reports: No Symptoms Reported Musculoskeletal: reports: Extremity Pain, Joint Pain Integumentary: reports: Blister, Change in Color, Erythema Neurological: reports: No Symptoms Endocrine: reports: No Symptoms Hematology/Lymphatic: reports: No Symptoms Psychiatric: reports: No Symptoms Physical Exam Vital Sings: Vital Signs Temperature 98.4 F 09/09/17 15:46 Pulse Rate 90 09/09/17 15:46 Respiratory Rate 18 09/09/17 15:46 Blood Pressure 124/76 09/09/17 15:46 O2 Sat by Pulse Oximetry (%) 98 09/07/17 20:40 Constitutional: Yes: No Distress, Calm Eyes: Yes: Conjunctiva Clear, EOM Intact HENT: Yes: Atraumatic, Normocephalic Neck: Yes: Supple, Trachea Midline Cardiovascular: Yes: Regular Rate and Rhythm Respiratory: Yes: Regular, CTA Bilaterally, On Nasal O2. No: Accessory Muscle Use, Cough, Rales, Rhonchi, SOB, SOB on Exertion, Stridor, Tachypnea, Wheezes ...Inspection: Yes: WNL ...Clubbing: No Gastrointestinal: Yes: Normal Bowel Sounds, Soft Breast(s): Yes: WNL Musculoskeletal: Yes: Joint Stiffness, Joint Swelling Extremities: Yes: Erythema Edema: Yes Peripheral Pulses WNL: Yes Integumentary: Yes: Erythema, Venous Stasis Changes Neurological: Yes: WNL, Alert, Oriented ...Motor Strength: WNL Psychiatric: Yes: WNL, Alert, Oriented Labs: CBC, BMP 09/09/17 07:45 09/09/17 07:45 Imaging - Results Chest X-ray: Report Reviewed, Image Reviewed Cat Scan: Report Reviewed, Image Reviewed Ultrasound: Report Reviewed, Image Reviewed Problem List - Problems (1) Pulmonary embolism Code(s): I26.99 - OTHER PULMONARY EMBOLISM WITHOUT ACUTE COR PULMONALE (2) Cellulitis Code(s): L03.90 - CELLULITIS, UNSPECIFIED Qualifiers: Site of cellulitis: extremity Site of cellulitis of extremity: lower extremity (3) DVT (deep venous thrombosis) Code(s): I82.409 - ACUTE EMBOLISM AND THOMBOS UNSP DEEP VN UNSP LOWER EXTREMITY Qualifiers: DVT location: lower extremity Laterality: left (4) Prostate CA Code(s): C61 - MALIGNANT NEOPLASM OF PROSTATE (5) Thrombocytopenia Code(s): D69.6 - THROMBOCYTOPENIA, UNSPECIFIED Assessment/Plan Agree with current management: Will be placed on full dose IV Heparin and Coumadin Noted that the patient was seen by vascular surgery : At present no intervention planned O2 as needed: not currently hypoxic or in distress Local skin care ECHO Noted empiric ABX for possible cellulitis Consideration for patient to be [place] [facility] [place] management by his primary specialty team Hypercoaguable workup per Heme Will follow Thank you. Dr Davidson
[2017-09-09] MEDS: HEPARIN NA (PORCINE) 5,000 UNITS/ML 1ML VIAL IVPUSH PRN (17:38)
[2017-09-09] MEDS: DEXTROSE 5%-0.45% SALINE 1,000 ML IV SCH (17:57)
[2017-09-09] MEDS: ATORVASTATIN CA 10 MG TABLET (FP) PO SCH (21:15)
[2017-09-10] MEDS: HEPARIN SOD,PORK IN 0.45% NACL 25,000 UNITS/500 ML INFUS.BAG IVPB SCH ×3 (02:04→17:26)
[2017-09-10] MEDS: DEXTROSE 5%-0.45% SALINE 1,000 ML IV SCH ×2 (05:07→17:32)
[2017-09-10] MEDS: DOCUSATE SODIUM 100 MG CAPSULE (FP) PO SCH ×3 (05:52→21:04)
[2017-09-10 09:07] LABS: INR 1.34 (0.82-1.09); PROTHROMBIN TIME (PATIENT) 15.1 SEC (9.98-11.88)
[2017-09-10] MEDS ORDERED: PT OWN MED DRAWER 7, Y5N ONE (10:38)
[2017-09-10] MEDS: CEFTRIAXONE 2 GM in DEXTROSE 5%-WATER - 100 ML IVPB SCH (10:44)
[2017-09-10] MEDS: POLYETHYLENE GLYCOL 3350 119 GM BTL PO SCH (10:44)
--- NOTE | 2017-09-10 10:51 | PN ---
Progress Note, Physician History of Present Illness: pt seen/ examined alol f/u noted / appreciated i had discussed case in deatail with Dr. Wolff/ radiologist /Dr. Garcia discussed ct scan findings with pt /pts daughter also. Dr. Hines also spoke with IR- NO procedure advised at present considering transfer to [facility]- Dr. Razo alsospoke to them yesterday- thew will get back Pt feels better today son at bed side on heparin drip decreased pain having bm decreased swelling of left leg. denies cp/sob. denies abd pain. - Current Medication List Current Medications: Active Medications Acetaminophen (Tylenol -) 650 mg PO Q4H PRN PRN Reason: FEVER OR PAIN Last Admin: 09/09/17 10:35 Dose: 650 mg Atorvastatin Calcium (Lipitor -) 10 mg PO HS TERESITA Last Admin: 09/09/17 21:15 Dose: 10 mg Docusate Sodium (Colace -) 100 mg PO TID TERESITA Last Admin: 09/10/17 05:52 Dose: Not Given Heparin Sodium (Porcine) (Heparin -) 1,000 unit IVPUSH PRN PRN PRN Reason: Heparin Heparin Sodium (Porcine) (Heparin -) 5,000 unit IVPUSH PRN PRN PRN Reason: Heparin Last Admin: 09/09/17 17:38 Dose: 5,000 unit Ceftriaxone Sodium 2 gm/ (Dextrose) 100 mls @ 200 mls/hr IVPB DAILY TERESITA Last Admin: 09/09/17 09:36 Dose: 200 mls/hr HEPARIN SOD,PORK IN 0.45% NACL (Heparin-1/2ns 25,000 Units/500) 25,000 units in 500 mls @ 28 mls/hr IVPB TITR TERESITA; 1,400 UNIT/HR PRN Reason: Protocol Last Admin: 09/10/17 02:04 Dose: 1,250 unit/hr, 25 mls/hr Dextrose/Sodium Chloride (D5-1/2ns -) 1,000 mls @ 83 mls/hr IV ASDIR TERESITA Last Admin: 09/10/17 05:07 Dose: 83 mls/hr Morphine Sulfate (Morphine Sulfate) 2 mg IVPUSH Q4H PRN PRN Reason: BACK PAIN Last Admin: 09/09/17 21:17 Dose: 2 mg Oxycodone HCl (Roxicodone -) 10 mg PO Q4H PRN PRN Reason: PAIN Last Admin: 09/09/17 10:35 Dose: 10 mg Polyethylene Glycol (Miralax (For Daily Use) -) 17 gm PO DAILY TERESITA Last Admin: 09/09/17 09:35 Dose: 17 gm Sodium Phosphate (Fleet Adult Rectal Enema -) 133 ml [place] DAILY PRN PRN Reason: CONSTIPATION - Objective Vital Signs: Vital Signs Temperature 99.6 F 09/10/17 06:00 Pulse Rate 82 09/10/17 06:00 Respiratory Rate 18 09/10/17 06:00 Blood Pressure 120/72 09/10/17 06:00 O2 Sat by Pulse Oximetry (%) 96 09/09/17 21:00 Constitutional: Yes: No Distress, Calm Eyes: Yes: Conjunctiva Clear Neck: Yes: Supple Cardiovascular: Yes: Regular Rate and Rhythm Respiratory: Yes: CTA Bilaterally Gastrointestinal: Yes: Normal Bowel Sounds, Soft Edema: No Neurological: Yes: Alert Psychiatric: Yes: Alert Labs: CBC, BMP 09/09/17 07:45 09/09/17 07:45 INR, PTT INR 1.34 (0.82-1.09) H 09/10/17 06:00 Problem List - Problems (1) Elevated lactic acid level Code(s): R79.89 - OTHER SPECIFIED ABNORMAL FINDINGS OF BLOOD CHEMISTRY (2) Dehydration Code(s): E86.0 - DEHYDRATION (3) Renal insufficiency, mild Code(s): N28.9 - DISORDER OF KIDNEY AND URETER, UNSPECIFIED (4) Cellulitis Code(s): L03.90 - CELLULITIS, UNSPECIFIED Qualifiers: Site of cellulitis: extremity Site of cellulitis of extremity: lower extremity (5) DVT (deep venous thrombosis) Code(s): I82.409 - ACUTE EMBOLISM AND THOMBOS UNSP DEEP VN UNSP LOWER EXTREMITY Qualifiers: DVT location: lower extremity Laterality: left (6) Prostate CA Code(s): C61 - MALIGNANT NEOPLASM OF PROSTATE (7) Spinal stenosis Code(s): M48.00 - SPINAL STENOSIS, SITE UNSPECIFIED (8) Constipation Code(s): K59.00 - CONSTIPATION, UNSPECIFIED Assessment/Plan better heparin f/u labs I discussed with Dr. Logan today. bone scan/ mri adrenal echo done today discussed with pts son also today time spend 40 min in reviewing/ documenting/ examining and coordating . will follow
--- NOTE | 2017-09-10 13:29 | PN ---
Progress Note (short form) - Note Progress Note: PULMONARY APPEARS COMFORTABLE COMPLAINING OF "HEAVINESS" OF LEFT LOWER EXT/NO PAIN DENIES SOB/CP VSS/AFEBRILE ANICTERIC CLEAR B/L LUNG BALDWIN S1S2 BS+ NONTENDER LEFT LOWER EXT EDEMA 4+ LABS/MEDS/NOTES/IMAGES REVIEWED vte extensive prostate ca spinal stenosis IV Heparin and Coumadin As per vascular surgery : no intervention planned O2 as needed Local skin care ECHO pending ABX for possible cellulitis Consideration for patient to be transferred to [facility] [place] for further management by his primary specialty team Hypercoaguable workup per Sergei TAYLOR MD
[2017-09-10] MEDS: oxyCODONE HCL 5 MG TABLET PO PRN (13:53)
[2017-09-10] MEDS ORDERED: oxyCODONE HCL 5 MG TABLET PO PRN (20:33)
--- NOTE | 2017-09-10 20:41 | HOSP ---
Subjective - Review of Symptoms Events since last encounter: Hospitalist Encounter Notified by primary RN that the patient's medication renewal A/P 66 M, history of Prostate CA treated by RPR at [facility] [place], now on clomiphene. 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 Known spinal stenosis. Admitted via the ER due to increasing RLE and LLE swelling and redness. Found to have extensive LE VTE extending to the common femoral and IVC. Renewed Oxycodone, Morphine Sulfate Musculoskeletal: Yes: Extremity Pain Physical Examination Vital Signs: Vital Signs Temperature 99.8 F H 09/10/17 20:12 Pulse Rate 91 H 09/10/17 20:12 Respiratory Rate 19 09/10/17 20:12 Blood Pressure 101/60 09/10/17 20:12 O2 Sat by Pulse Oximetry (%) 98 09/10/17 19:59 Labs: CBC, BMP 09/09/17 07:45 09/09/17 07:45
--- NOTE | 2017-09-10 20:55 | PN ---
Progress Note (short form) - Note Progress Note: Pt seen and examined. continues to feel better. O/E: Constitutional: Yes: Well Nourished, No Distress, Calm Eyes: Yes: Conjunctiva Clear HENT: Yes: Atraumatic, Normocephalic Neck: Yes: Supple, Trachea Midline Cardiovascular: Yes: Regular Rate and Rhythm Respiratory: Yes: Regular, CTA Bilaterally Gastrointestinal: Yes: Soft Extremities: Yes: Calf Tenderness, Other (LLE>RLE. swelling better) Edema: Yes Edema: LLE: 2+, no signs of phlegmasia Last Vital Signs Temp Pulse Resp BP Pulse Ox 99.8 F H 91 H 19 101/60 98 09/10/17 20:12 09/10/17 20:12 09/10/17 20:12 09/10/17 20:12 09/10/17 19:59 CBC, BMP 09/09/17 07:45 09/09/17 07:45 Current Medications Generic Name Dose Route Start Last Admin Trade Name Freq PRN Reason Stop Dose Admin Acetaminophen 650 mg 09/07/17 14:43 09/09/17 10:35 Tylenol - PO 650 mg Q4H PRN Administration FEVER OR PAIN Atorvastatin Calcium 10 mg 09/07/17 22:00 09/09/17 21:15 Lipitor - PO 10 mg HS TERESITA Administration Docusate Sodium 100 mg 09/07/17 22:00 09/10/17 13:53 Colace - PO Not Given TID TERESITA Heparin Sodium (Porcine) 1,000 unit 09/09/17 17:12 Heparin - IVPUSH PRN PRN Heparin Heparin Sodium (Porcine) 5,000 unit 09/09/17 17:12 09/09/17 17:38 Heparin - IVPUSH 5,000 unit PRN PRN Administration Heparin Ceftriaxone Sodium 2 gm/ 100 mls @ 200 mls/hr 09/07/17 15:00 09/10/17 10:44 Dextrose IVPB 200 mls/hr DAILY TERESITA Administration HEPARIN SOD,PORK IN 0.45% NACL 25,000 units in 500 mls @ 28 mls/hr 09/09/17 17 :24 09/10/17 17:26 Heparin-1/2ns 25,000 Units/500 IVPB Not Given TITR TERESITA Protocol 1,400 UNIT/HR Dextrose/Sodium Chloride 1,000 mls @ 83 mls/hr 09/09/17 17:30 09/10/17 17:32 D5-1/2ns - IV 83 mls/hr ASDIR TERESITA Administration Morphine Sulfate 2 mg 09/10/17 20:32 Morphine Sulfate IVPUSH Q4H PRN PAIN Oxycodone HCl 10 mg 09/10/17 20:33 Roxicodone - PO Q4H PRN PAIN Polyethylene Glycol 17 gm 09/08/17 10:00 09/10/17 10:44 Miralax (For Daily Use) - PO 17 gm DAILY TERESITA Administration Sodium Phosphate 133 ml 09/09/17 10:13 Fleet Adult Rectal Enema - [place] DAILY PRN CONSTIPATION DVT/PE: Heparin drip w. PTT monitoring start coumadin bridge tomorrow pm bridge for atleast 3days may change to NOACs at a later point of time. appreciate vascular input PSA still <0.1 Adrenal nodules for MRI r/o bony disease w/ Bone scan PT leg elevation and ambulation as tolerated, pain control d/w , pt and pts son Problem List - Problems (1) DVT (deep venous thrombosis) Code(s): I82.409 - ACUTE EMBOLISM AND THOMBOS UNSP DEEP VN UNSP LOWER EXTREMITY Qualifiers: DVT location: lower extremity Laterality: left (2) Prostate CA Code(s): C61 - MALIGNANT NEOPLASM OF PROSTATE (3) Renal insufficiency, mild Code(s): N28.9 - DISORDER OF KIDNEY AND URETER, UNSPECIFIED (4) Sepsis Code(s): A41.9 - SEPSIS, UNSPECIFIED ORGANISM Qualifiers: Sepsis type: sepsis due to unspecified organism Qualified Code(s): A41.9 - Sepsis, unspecified organism (5) Thrombocytopenia Code(s): D69.6 - THROMBOCYTOPENIA, UNSPECIFIED
[2017-09-10] MEDS: morphine CARPU-JECT 8 MG/1 ML DISP.SYRIN IVPUSH PRN (21:01)
[2017-09-10] MEDS: ATORVASTATIN CA 10 MG TABLET (FP) PO SCH (21:04)
[2017-09-11] MEDS: DOCUSATE SODIUM 100 MG CAPSULE (FP) PO SCH ×3 (05:52→21:15)
[2017-09-11 08:00] LABS: HEMATOCRIT 38.3 % (35.4-49); HEMOGLOBIN 12.5 GM/dL (11.7-16.9); MCH 30.5 pg (25.7-33.7); MCHC 32.5 g/dl (32.0-35.9); MEAN CELL VOLUME 93.7 fl (80-96); PLATELET COUNT 205 K/MM3 (134-434); RBC 4.09 M/mm3 (4.00-5.60); RDW 13.2 % (11.9-15.9)
[2017-09-11 08:24] LABS: INR 1.2 (0.82-1.09); PROTHROMBIN TIME (PATIENT) 13.6 SEC (9.98-11.88)
--- NOTE | 2017-09-11 09:50 | PN ---
Progress Note (short form) - Note Progress Note: pt feels better decreased heaviness of legs having bowel movements denies cp/sob. Vital Signs Temp 99.8 F H 09/10/17 20:12 Pulse 91 H 09/10/17 20:12 Resp 19 09/10/17 20:12 BP 101/60 09/10/17 20:12 Pulse Ox 98 09/10/17 19:59 Intake & Output 09/10/17 09/10/17 09/11/17 11:59 23:59 11:59 Intake Total 1193 2356 1272 Output Total 2 Balance 1193 2354 1272 Intake: IV 1193 1166 1272 D5-1/2Ns - 1,000 ml @ 83 900 913 996 mls/hr IV ASDIR TERESITA Rx#: [id number] HEPARIN-1/2NS 25,000 293 253 276 UNITS/500 25,000 units In 500 ml @ 1,400 UNIT/HR 28 mls/hr IVPB TITR TERESITA Rx#:[id number] IVPB 50 Oral 1140 Output: Urine 2 Void 2 Other: Voiding Method Urinal Urinal Bowel Movement No Active Medications Acetaminophen (Tylenol -) 650 mg PO Q4H PRN PRN Reason: FEVER OR PAIN Last Admin: 09/09/17 10:35 Dose: 650 mg Atorvastatin Calcium (Lipitor -) 10 mg PO HS TERESITA Last Admin: 09/10/17 21:04 Dose: 10 mg Docusate Sodium (Colace -) 100 mg PO TID TERESITA Last Admin: 09/11/17 05:52 Dose: Not Given Heparin Sodium (Porcine) (Heparin -) 1,000 unit IVPUSH PRN PRN PRN Reason: Heparin Heparin Sodium (Porcine) (Heparin -) 5,000 unit IVPUSH PRN PRN PRN Reason: Heparin Last Admin: 09/09/17 17:38 Dose: 5,000 unit HEPARIN SOD,PORK IN 0.45% NACL (Heparin-1/2ns 25,000 Units/500) 25,000 units in 500 mls @ 28 mls/hr IVPB TITR TERESITA; 1,400 UNIT/HR PRN Reason: Protocol Last Admin: 09/10/17 17:26 Dose: Not Given Dextrose/Sodium Chloride (D5-1/2ns -) 1,000 mls @ 83 mls/hr IV ASDIR TERESITA Last Admin: 09/10/17 17:32 Dose: 83 mls/hr Morphine Sulfate (Morphine Sulfate) 2 mg IVPUSH Q4H PRN PRN Reason: PAIN Last Admin: 09/10/17 21:01 Dose: 2 mg Oxycodone HCl (Roxicodone -) 10 mg PO Q4H PRN PRN Reason: PAIN Polyethylene Glycol (Miralax (For Daily Use) -) 17 gm PO DAILY [facility] Last Admin: 09/10/17 10:44 Dose: 17 gm Sodium Phosphate (Fleet Adult Rectal Enema -) 133 ml [place] DAILY PRN PRN Reason: CONSTIPATION CBC, BMP 09/11/17 06:00 Microbiology 09/07/17 13:08 Blood Culture - Preliminary Blood - Peripheral Venous NO GROWTH OBTAINED AFTER 72 HOURS, INCUBATION TO CONTINUE FOR 2 DAYS. 09/07/17 13:08 Blood Culture - Preliminary Blood - Peripheral Venous NO GROWTH OBTAINED AFTER 72 HOURS, INCUBATION TO CONTINUE FOR 2 DAYS. bone scan/ mri - pending echo- ok-- reviewed Physical Exam Constitutional: Yes: No Distress, Calm Eyes: Yes: Conjunctiva Clear Neck: Yes: Supple Cardiovascular: Yes: Regular Rate and Rhythm Respiratory: Yes: CTA Bilaterally Gastrointestinal: Yes: Normal Bowel Sounds, Soft Edema: decreased left leg swelling/ redness Neurological: Yes: Alert Psychiatric: Yes: Alert a/p better continue present care heparin/coumadin-- oob- chair physical therapy will follow Problem List - Problems (1) Elevated lactic acid level Code(s): R79.89 - OTHER SPECIFIED ABNORMAL FINDINGS OF BLOOD CHEMISTRY (2) Dehydration Code(s): E86.0 - DEHYDRATION (3) Renal insufficiency, mild Code(s): N28.9 - DISORDER OF KIDNEY AND URETER, UNSPECIFIED (4) Cellulitis Code(s): L03.90 - CELLULITIS, UNSPECIFIED Qualifiers: Site of cellulitis: extremity Site of cellulitis of extremity: lower extremity (5) DVT (deep venous thrombosis) Code(s): I82.409 - ACUTE EMBOLISM AND THOMBOS UNSP DEEP VN UNSP LOWER EXTREMITY Qualifiers: DVT location: lower extremity Laterality: left (6) Prostate CA Code(s): C61 - MALIGNANT NEOPLASM OF PROSTATE (7) Spinal stenosis Code(s): M48.00 - SPINAL STENOSIS, SITE UNSPECIFIED (8) Constipation Code(s): K59.00 - CONSTIPATION, UNSPECIFIED
[2017-09-11] MEDS: POLYETHYLENE GLYCOL 3350 119 GM BTL PO SCH (10:44)
[2017-09-11 11:31] LABS: ALBUMIN 2.7 g/dl (3.4-5.0); ANION GAP 9 (8-16); BILIRUBIN,TOTAL 0.7 mg/dL (0.2-1.0); BLOOD UREA NITROGEN 11 mg/dL (7-18); CALCIUM 8.3 mg/dL (8.5-10.1); CHLORIDE 106 mmol/L (98-107); CO2 24 mmol/L (21-32); CREATININE 1.2 mg/dL (0.7-1.3); GLUCOSE,RANDOM 104 mg/dL (74-106); POTASSIUM 4.2 mmol/L (3.5-5.1); SGOT/AST 22 U/L (15-37); SGPT/ALT 29 U/L (12-78); SODIUM 139 mmol/L (136-145); TOT PROT 6.2 g/dl (6.4-8.2)
[2017-09-11 11:32] LABS: ALK PHOS 44 U/L (45-117)
[2017-09-11] MEDS: HEPARIN SOD,PORK IN 0.45% NACL 25,000 UNITS/500 ML INFUS.BAG IVPB SCH (14:47)
[2017-09-11] MEDS: DEXTROSE 5%-0.45% SALINE 1,000 ML IV SCH ×2 (14:48→21:17)
--- NOTE | 2017-09-11 16:08 | PN ---
Progress Note (short form) - Note Progress Note: PULMONARY RIGHT LEG MILD EDEMA AFTER AMBULATING COMPLAINING OF "HEAVINESS" OF LEFT LOWER EXT/NO PAIN DENIES SOB/CP VSS/AFEBRILE ANICTERIC CLEAR B/L LUNG BALDWIN S1S2 BS+ NONTENDER LEFT LOWER EXT EDEMA 3+ RIGHT CALF 2+/NONTENDER LABS/MEDS/NOTES/IMAGES REVIEWED VTE extensive prostate ca spinal stenosis IV Heparin and Coumadin As per vascular surgery : no intervention planned O2 as needed Local skin care ECHO pending ABX for possible cellulitis Hortencia TAYLOR MD
--- NOTE | 2017-09-11 17:07 | PN ---
Progress Note (short form) - Note Progress Note: Pt seen and examined. feels more or less the same like yesterday. O/E: Constitutional: Yes: Well Nourished, No Distress, Calm Eyes: Yes: Conjunctiva Clear HENT: Yes: Atraumatic, Normocephalic Neck: Yes: Supple, Trachea Midline Cardiovascular: Yes: Regular Rate and Rhythm Respiratory: Yes: Regular, CTA Bilaterally Gastrointestinal: Yes: Soft Extremities: Yes: Calf Tenderness, Other (LLE>RLE. swelling better) Edema: Yes Edema: LLE: 2+, no signs of phlegmasia Last Vital Signs Temp Pulse Resp BP Pulse Ox 99.8 F H 91 H 19 101/60 98 09/10/17 20:12 09/10/17 20:12 09/10/17 20:12 09/10/17 20:12 09/10/17 19:59 CBC, BMP 09/09/17 07:45 09/09/17 07:45 Current Medications Generic Name Dose Route Start Last Admin Trade Name Freq PRN Reason Stop Dose Admin Acetaminophen 650 mg 09/07/17 14:43 09/09/17 10:35 Tylenol - PO 650 mg Q4H PRN Administration FEVER OR PAIN Atorvastatin Calcium 10 mg 09/07/17 22:00 09/09/17 21:15 Lipitor - PO 10 mg HS TERESITA Administration Docusate Sodium 100 mg 09/07/17 22:00 09/10/17 13:53 Colace - PO Not Given TID TERESITA Heparin Sodium (Porcine) 1,000 unit 09/09/17 17:12 Heparin - IVPUSH PRN PRN Heparin Heparin Sodium (Porcine) 5,000 unit 09/09/17 17:12 09/09/17 17:38 Heparin - IVPUSH 5,000 unit PRN PRN Administration Heparin Ceftriaxone Sodium 2 gm/ 100 mls @ 200 mls/hr 09/07/17 15:00 09/10/17 10:44 Dextrose IVPB 200 mls/hr DAILY TERESITA Administration HEPARIN SOD,PORK IN 0.45% NACL 25,000 units in 500 mls @ 28 mls/hr 09/09/17 17 :24 09/10/17 17:26 Heparin-1/2ns 25,000 Units/500 IVPB Not Given TITR TERESITA Protocol 1,400 UNIT/HR Dextrose/Sodium Chloride 1,000 mls @ 83 mls/hr 09/09/17 17:30 09/10/17 17:32 D5-1/2ns - IV 83 mls/hr ASDIR TERESITA Administration Morphine Sulfate 2 mg 09/10/17 20:32 Morphine Sulfate IVPUSH Q4H PRN PAIN Oxycodone HCl 10 mg 09/10/17 20:33 Roxicodone - PO Q4H PRN PAIN Polyethylene Glycol 17 gm 09/08/17 10:00 09/10/17 10:44 Miralax (For Daily Use) - PO 17 gm DAILY TERESITA Administration Sodium Phosphate 133 ml 09/09/17 10:13 Fleet Adult Rectal Enema - [place] DAILY PRN CONSTIPATION DVT/PE: will c/w Heparin drip w. PTT monitoring coumadin tonight bridge for atleast 3days may change to NOACs at a later point of time. appreciate vascular input would need Hypercaog w/u as an OP PSA still <0.1 Adrenal nodules for MRI bone scan negative PT leg elevation and ambulation as tolerated, pain control Problem List - Problems (1) DVT (deep venous thrombosis) Code(s): I82.409 - ACUTE EMBOLISM AND THOMBOS UNSP DEEP VN UNSP LOWER EXTREMITY Qualifiers: DVT location: lower extremity Laterality: left (2) Prostate CA Code(s): C61 - MALIGNANT NEOPLASM OF PROSTATE (3) Renal insufficiency, mild Code(s): N28.9 - DISORDER OF KIDNEY AND URETER, UNSPECIFIED (4) Sepsis Code(s): A41.9 - SEPSIS, UNSPECIFIED ORGANISM Qualifiers: Sepsis type: sepsis due to unspecified organism Qualified Code(s): A41.9 - Sepsis, unspecified organism (5) Thrombocytopenia Code(s): D69.6 - THROMBOCYTOPENIA, UNSPECIFIED
[2017-09-11] MEDS: WARFARIN NA 5 MG TABLET (UD) PO SCH (17:37)
[2017-09-11] MEDS: ATORVASTATIN CA 10 MG TABLET (FP) PO SCH (21:15)
[2017-09-11] MEDS: morphine CARPU-JECT 8 MG/1 ML DISP.SYRIN IVPUSH PRN (22:24)
[2017-09-12] MEDS: DOCUSATE SODIUM 100 MG CAPSULE (FP) PO SCH ×3 (05:47→21:34)
[2017-09-12 07:28] LABS: HEMATOCRIT 37.7 % (35.4-49); HEMOGLOBIN 12.5 GM/dL (11.7-16.9); MCH 30.9 pg (25.7-33.7); MCHC 33.2 g/dl (32.0-35.9); MEAN CELL VOLUME 93.1 fl (80-96); MEAN PLT VOLUME 8.4 fl (7.5-11.1); PLATELET COUNT 229 K/MM3 (134-434); RBC 4.05 M/mm3 (4.00-5.60); RDW 13.1 % (11.9-15.9); WHITE BLOOD COUNT 11.5 K/mm3 (4.0-10.0)
[2017-09-12 07:57] LABS: INR 1.16 (0.82-1.09); PROTHROMBIN TIME (PATIENT) 13.1 SEC (9.98-11.88)
[2017-09-12 08:42] LABS: ALBUMIN 2.8 g/dl (3.4-5.0); ANION GAP 10 (8-16); BILIRUBIN,TOTAL 0.8 mg/dL (0.2-1.0); BLOOD UREA NITROGEN 10 mg/dL (7-18); CALCIUM 8.6 mg/dL (8.5-10.1); CHLORIDE 105 mmol/L (98-107); CO2 26 mmol/L (21-32); CREATININE 1.2 mg/dL (0.7-1.3); GLUCOSE,RANDOM 108 mg/dL (74-106); POTASSIUM 4.3 mmol/L (3.5-5.1); SGOT/AST 28 U/L (15-37); SGPT/ALT 43 U/L (12-78); SODIUM 141 mmol/L (136-145); TOT PROT 6.6 g/dl (6.4-8.2)
[2017-09-12 08:43] LABS: ALK PHOS 48 U/L (45-117)
[2017-09-12] MEDS: HEPARIN SOD,PORK IN 0.45% NACL 25,000 UNITS/500 ML INFUS.BAG IVPB SCH ×2 (09:13→17:58)
--- NOTE | 2017-09-12 10:58 | PN ---
Progress Note (short form) - Note Progress Note: patient seen and examined continued to improve Able to ambulate now Decreased leg swelling and redness Decreased pain and heaviness Vital Signs Temp 99.2 F 09/12/17 05:32 Pulse 95 H 09/12/17 05:32 Resp 20 09/12/17 05:32 BP 106/65 09/12/17 05:32 Pulse Ox 98 09/11/17 21:00 Intake & Output 09/11/17 09/11/17 09/12/17 11:59 23:59 11:59 Intake Total 1272 1460 1476 Output Total 2 400 Balance 1272 1458 1076 Intake: IV 1272 1260 1276 D5-1/2Ns - 1,000 ml @ 83 996 1000 1000 mls/hr IV ASDIR TERESITA Rx#: [id number] HEPARIN-1/2NS 25,000 276 260 276 UNITS/500 25,000 units In 500 ml @ 1,400 UNIT/HR 28 mls/hr IVPB TITR TERESITA Rx#:[id number] Oral 200 200 Output: Urine 2 400 Void 2 400 Other: Voiding Method Urinal Urinal # Unmeasured Voids Void 2 Bowel Movement No Active Medications Acetaminophen (Tylenol -) 650 mg PO Q4H PRN PRN Reason: FEVER OR PAIN Last Admin: 09/09/17 10:35 Dose: 650 mg Atorvastatin Calcium (Lipitor -) 10 mg PO HS TERESITA Last Admin: 09/11/17 21:15 Dose: 10 mg Docusate Sodium (Colace -) 100 mg PO TID TERESITA Last Admin: 09/12/17 05:47 Dose: 100 mg Heparin Sodium (Porcine) (Heparin -) 1,000 unit IVPUSH PRN PRN PRN Reason: Heparin Heparin Sodium (Porcine) (Heparin -) 5,000 unit IVPUSH PRN PRN PRN Reason: Heparin Last Admin: 09/09/17 17:38 Dose: 5,000 unit HEPARIN SOD,PORK IN 0.45% NACL (Heparin-1/2ns 25,000 Units/500) 25,000 units in 500 mls @ 28 mls/hr IVPB TITR TERESITA; 1,400 UNIT/HR PRN Reason: Protocol Last Titration: 09/12/17 09:13 Dose: 1,150 unit/hr, 23 mls/hr Dextrose/Sodium Chloride (D5-1/2ns -) 1,000 mls @ 83 mls/hr IV ASDIR [facility] Last Admin: 09/11/17 21:17 Dose: 83 mls/hr Morphine Sulfate (Morphine Sulfate) 2 mg IVPUSH Q4H PRN PRN Reason: PAIN Last Admin: 09/11/17 22:24 Dose: 2 mg Oxycodone HCl (Roxicodone -) 10 mg PO Q4H PRN PRN Reason: PAIN Polyethylene Glycol (Miralax (For Daily Use) -) 17 gm PO DAILY [facility] Last Admin: 09/11/17 10:44 Dose: Not Given Sodium Phosphate (Fleet Adult Rectal Enema -) 133 ml [place] DAILY PRN PRN Reason: CONSTIPATION Warfarin Sodium (Coumadin -) 5 mg PO DAILY@1800 [facility] Last Admin: 09/11/17 17:37 Dose: 5 mg CBC, BMP 09/12/17 06:50 09/12/17 06:50 Microbiology 09/07/17 13:08 Blood Culture - Preliminary Blood - Peripheral Venous NO GROWTH OBTAINED AFTER 96 HOURS, INCUBATION TO CONTINUE FOR 1 DAYS. 09/07/17 13:08 Blood Culture - Preliminary Blood - Peripheral Venous NO GROWTH OBTAINED AFTER 96 HOURS, INCUBATION TO CONTINUE FOR 1 DAYS. Physical Exam Constitutional: Yes: No Distress, Calm. comfortable Eyes: Yes: Conjunctiva Clear Neck: Yes: Supple Cardiovascular: Yes: Regular Rate and Rhythm Respiratory: Yes: CTA Bilaterally Gastrointestinal: Yes: Normal Bowel Sounds, Soft Edema: decreased left leg swelling/ redness-/ tenderness Neurological: Yes: Alert Psychiatric: Yes: Alert a/p continue to improve continue present care heparin/coumadin-- until INR is therapeutic oob- chair physical therapy no surgical intervention planned will follow Problem List - Problems (1) Elevated lactic acid level Code(s): R79.89 - OTHER SPECIFIED ABNORMAL FINDINGS OF BLOOD CHEMISTRY (2) Dehydration Code(s): E86.0 - DEHYDRATION (3) Renal insufficiency, mild Code(s): N28.9 - DISORDER OF KIDNEY AND URETER, UNSPECIFIED (4) Cellulitis Code(s): L03.90 - CELLULITIS, UNSPECIFIED Qualifiers: Site of cellulitis: extremity Site of cellulitis of extremity: lower extremity (5) DVT (deep venous thrombosis) Code(s): I82.409 - ACUTE EMBOLISM AND THOMBOS UNSP DEEP VN UNSP LOWER EXTREMITY Qualifiers: DVT location: lower extremity Laterality: left (6) Prostate CA Code(s): C61 - MALIGNANT NEOPLASM OF PROSTATE (7) Spinal stenosis Code(s): M48.00 - SPINAL STENOSIS, SITE UNSPECIFIED (8) Constipation Code(s): K59.00 - CONSTIPATION, UNSPECIFIED
[2017-09-12] MEDS: DEXTROSE 5%-0.45% SALINE 1,000 ML IV SCH ×2 (11:04→17:58)
[2017-09-12] MEDS: POLYETHYLENE GLYCOL 3350 119 GM BTL PO SCH (11:05)
--- NOTE | 2017-09-12 11:46 | PN ---
Progress Note (short form) - Note Progress Note: Pt seen and examined. says he is better than yesterday. O/E: Constitutional: Yes: Well Nourished, No Distress, Calm Eyes: Yes: Conjunctiva Clear HENT: Yes: Atraumatic, Normocephalic Neck: Yes: Supple, Trachea Midline Cardiovascular: Yes: Regular Rate and Rhythm Respiratory: Yes: Regular, CTA Bilaterally Gastrointestinal: Yes: Soft Extremities: Yes: Calf Tenderness, Other (LLE>RLE. swelling better) Edema: Yes Edema: LLE: 2+, no signs of phlegmasia Last Vital Signs Temp Pulse Resp BP Pulse Ox 99.8 F H 91 H 19 101/60 98 09/10/17 20:12 09/10/17 20:12 09/10/17 20:12 09/10/17 20:12 09/10/17 19:59 CBC, BMP 09/09/17 07:45 09/09/17 07:45 Current Medications Generic Name Dose Route Start Last Admin Trade Name Freq PRN Reason Stop Dose Admin Acetaminophen 650 mg 09/07/17 14:43 09/09/17 10:35 Tylenol - PO 650 mg Q4H PRN Administration FEVER OR PAIN Atorvastatin Calcium 10 mg 09/07/17 22:00 09/09/17 21:15 Lipitor - PO 10 mg HS TERESITA Administration Docusate Sodium 100 mg 09/07/17 22:00 09/10/17 13:53 Colace - PO Not Given TID TERESITA Heparin Sodium (Porcine) 1,000 unit 09/09/17 17:12 Heparin - IVPUSH PRN PRN Heparin Heparin Sodium (Porcine) 5,000 unit 09/09/17 17:12 09/09/17 17:38 Heparin - IVPUSH 5,000 unit PRN PRN Administration Heparin Ceftriaxone Sodium 2 gm/ 100 mls @ 200 mls/hr 09/07/17 15:00 09/10/17 10:44 Dextrose IVPB 200 mls/hr DAILY TERESITA Administration HEPARIN SOD,PORK IN 0.45% NACL 25,000 units in 500 mls @ 28 mls/hr 09/09/17 17 :24 09/10/17 17:26 Heparin-1/2ns 25,000 Units/500 IVPB Not Given TITR TERESITA Protocol 1,400 UNIT/HR Dextrose/Sodium Chloride 1,000 mls @ 83 mls/hr 09/09/17 17:30 09/10/17 17:32 D5-1/2ns - IV 83 mls/hr ASDIR TERESITA Administration Morphine Sulfate 2 mg 09/10/17 20:32 Morphine Sulfate IVPUSH Q4H PRN PAIN Oxycodone HCl 10 mg 09/10/17 20:33 Roxicodone - PO Q4H PRN PAIN Polyethylene Glycol 17 gm 09/08/17 10:00 09/10/17 10:44 Miralax (For Daily Use) - PO 17 gm DAILY TERESITA Administration Sodium Phosphate 133 ml 09/09/17 10:13 Fleet Adult Rectal Enema - [place] DAILY PRN CONSTIPATION AC with heparin , bridge to coumadin daily INR continue to monitor LE OOB to chair encouraged progress noted with PT Problem List - Problems (1) DVT (deep venous thrombosis) Code(s): I82.409 - ACUTE EMBOLISM AND THOMBOS UNSP DEEP VN UNSP LOWER EXTREMITY Qualifiers: DVT location: lower extremity Laterality: left (2) Prostate CA Code(s): C61 - MALIGNANT NEOPLASM OF PROSTATE (3) Renal insufficiency, mild Code(s): N28.9 - DISORDER OF KIDNEY AND URETER, UNSPECIFIED (4) Sepsis Code(s): A41.9 - SEPSIS, UNSPECIFIED ORGANISM Qualifiers: Sepsis type: sepsis due to unspecified organism Qualified Code(s): A41.9 - Sepsis, unspecified organism (5) Thrombocytopenia Code(s): D69.6 - THROMBOCYTOPENIA, UNSPECIFIED
--- NOTE | 2017-09-12 11:56 | PN ---
Progress Note (short form) - Note Progress Note: PULMONARY BOTH LOWER EXT APPEARS LESS EDEMATOUS DENIES SOB/CP/DYSURIA/COUGH/ABD PAIN VSS/LOW GRADE TEMP ANICTERIC CLEAR B/L LUNG BALDWIN S1S2 BS+ NONTENDER LEFT LOWER EXT EDEMA 2+ RIGHT CALF 2+/NONTENDER LABS/MEDS/NOTES/IMAGES REVIEWED VTE extensive prostate ca spinal stenosis IV Heparin and Coumadin As per vascular surgery : no intervention planned O2 as needed Local skin care ECHO reviewed ABX for possible cellulitis Hortencia TAYLOR MD
[2017-09-12] MEDS: WARFARIN NA 5 MG TABLET (UD) PO SCH (17:58)
[2017-09-12] MEDS: ATORVASTATIN CA 10 MG TABLET (FP) PO SCH (21:34)
[2017-09-13] MEDS: DOCUSATE SODIUM 100 MG CAPSULE (FP) PO SCH ×3 (06:31→21:40)
[2017-09-13 08:47] LABS: HEMATOCRIT 36.9 % (35.4-49); MCH 30.3 pg (25.7-33.7); MCHC 32.5 g/dl (32.0-35.9); MEAN CELL VOLUME 93.2 fl (80-96); MEAN PLT VOLUME 8.2 fl (7.5-11.1); PLATELET COUNT 234 K/MM3 (134-434); RBC 3.96 M/mm3 (4.00-5.60); RDW 13.2 % (11.9-15.9); WHITE BLOOD COUNT 10.7 K/mm3 (4.0-10.0)
[2017-09-13 08:59] LABS: ALBUMIN 2.6 g/dl (3.4-5.0); ANION GAP 11 (8-16); BILIRUBIN,TOTAL 0.7 mg/dL (0.2-1.0); BLOOD UREA NITROGEN 9 mg/dL (7-18); CALCIUM 8.5 mg/dL (8.5-10.1); CHLORIDE 105 mmol/L (98-107); CO2 25 mmol/L (21-32); CREATININE 1.1 mg/dL (0.7-1.3); GLUCOSE,RANDOM 109 mg/dL (74-106); SGOT/AST 29 U/L (15-37); SGPT/ALT 46 U/L (12-78); SODIUM 141 mmol/L (136-145)
[2017-09-13 09:00] LABS: ALK PHOS 46 U/L (45-117); TOT PROT 6.3 g/dl (6.4-8.2)
[2017-09-13] MEDS: HEPARIN SOD,PORK IN 0.45% NACL 25,000 UNITS/500 ML INFUS.BAG IVPB SCH ×3 (09:30→17:46)
[2017-09-13] MEDS: HEPARIN NA (PORCINE) 5,000 UNITS/ML 1ML VIAL IVPUSH PRN (09:30)
[2017-09-13] MEDS: POLYETHYLENE GLYCOL 3350 119 GM BTL PO SCH (09:45)
--- NOTE | 2017-09-13 10:29 | PN ---
Progress Note (short form) - Note Progress Note: PULMONARY RESTING COMFORTABLY NO OVERALL CHANGE IN EXAM LABS/MEDS/NOTES/IMAGES REVIEWED VTE extensive prostate ca spinal stenosis IV Heparin and Coumadin INR pending for today O2 as needed Local skin care ECHO reviewed Hortencia TAYLOR MD
[2017-09-13] MEDS: DEXTROSE 5%-0.45% SALINE 1,000 ML IV SCH ×2 (12:25→17:38)
--- NOTE | 2017-09-13 13:17 | PN ---
Progress Note (short form) - Note Progress Note: Pt seen and examined. stable LE O/E: Constitutional: Yes: Well Nourished, No Distress, Calm Eyes: Yes: Conjunctiva Clear HENT: Yes: Atraumatic, Normocephalic Neck: Yes: Supple, Trachea Midline Cardiovascular: Yes: Regular Rate and Rhythm Respiratory: Yes: Regular, CTA Bilaterally Gastrointestinal: Yes: Soft Extremities: Yes: Calf Tenderness, Other (LLE>RLE. swelling better,no erythema) Edema: Yes Edema: LLE: 2+, no signs of phlegmasia Last Vital Signs Temp Pulse Resp BP Pulse Ox 99.8 F H 91 H 19 101/60 98 09/10/17 20:12 09/10/17 20:12 09/10/17 20:12 09/10/17 20:12 09/10/17 19:59 CBC, BMP 09/09/17 07:45 09/09/17 07:45 Current Medications Generic Name Dose Route Start Last Admin Trade Name Freq PRN Reason Stop Dose Admin Acetaminophen 650 mg 09/07/17 14:43 09/09/17 10:35 Tylenol - PO 650 mg Q4H PRN Administration FEVER OR PAIN Atorvastatin Calcium 10 mg 09/07/17 22:00 09/09/17 21:15 Lipitor - PO 10 mg HS TERESITA Administration Docusate Sodium 100 mg 09/07/17 22:00 09/10/17 13:53 Colace - PO Not Given TID TERESITA Heparin Sodium (Porcine) 1,000 unit 09/09/17 17:12 Heparin - IVPUSH PRN PRN Heparin Heparin Sodium (Porcine) 5,000 unit 09/09/17 17:12 09/09/17 17:38 Heparin - IVPUSH 5,000 unit PRN PRN Administration Heparin Ceftriaxone Sodium 2 gm/ 100 mls @ 200 mls/hr 09/07/17 15:00 09/10/17 10:44 Dextrose IVPB 200 mls/hr DAILY TERESITA Administration HEPARIN SOD,PORK IN 0.45% NACL 25,000 units in 500 mls @ 28 mls/hr 09/09/17 17 :24 09/10/17 17:26 Heparin-1/2ns 25,000 Units/500 IVPB Not Given TITR TERESITA Protocol 1,400 UNIT/HR Dextrose/Sodium Chloride 1,000 mls @ 83 mls/hr 09/09/17 17:30 09/10/17 17:32 D5-1/2ns - IV 83 mls/hr ASDIR TERESITA Administration Morphine Sulfate 2 mg 09/10/17 20:32 Morphine Sulfate IVPUSH Q4H PRN PAIN Oxycodone HCl 10 mg 09/10/17 20:33 Roxicodone - PO Q4H PRN PAIN Polyethylene Glycol 17 gm 09/08/17 10:00 09/10/17 10:44 Miralax (For Daily Use) - PO 17 gm DAILY TERESITA Administration Sodium Phosphate 133 ml 09/09/17 10:13 Fleet Adult Rectal Enema - [place] DAILY PRN CONSTIPATION DVT/PE; Second episode. Extensive AC with heparin , bridge to coumadin daily INR, today's pending will be assessed for NOACs in at least 2-3weeks. Vitals noted, will continue to monitor. Hypercoag w/u as an OP would need indefinite AC scans negative for mets. Problem List - Problems (1) DVT (deep venous thrombosis) Code(s): I82.409 - ACUTE EMBOLISM AND THOMBOS UNSP DEEP VN UNSP LOWER EXTREMITY Qualifiers: DVT location: lower extremity Laterality: left (2) Prostate CA Code(s): C61 - MALIGNANT NEOPLASM OF PROSTATE (3) Renal insufficiency, mild Code(s): N28.9 - DISORDER OF KIDNEY AND URETER, UNSPECIFIED (4) Sepsis Code(s): A41.9 - SEPSIS, UNSPECIFIED ORGANISM Qualifiers: Sepsis type: sepsis due to unspecified organism Qualified Code(s): A41.9 - Sepsis, unspecified organism (5) Thrombocytopenia Code(s): D69.6 - THROMBOCYTOPENIA, UNSPECIFIED
--- NOTE | 2017-09-13 14:03 | PN ---
Progress Note (short form) - Note Progress Note: patient seen and examined continued to improve slowly Able to ambulate Decreased leg swelling and redness Decreased pain and heaviness. slight improvement from yesterday Vital Signs Temp 99.0 F 09/13/17 09:13 Pulse 83 09/13/17 09:13 Resp 18 09/13/17 09:13 BP 114/68 09/13/17 09:13 Pulse Ox 98 09/11/17 21:00 Intake & Output 09/12/17 09/13/17 09/13/17 23:59 11:59 23:59 Intake Total 1476 1290 500 Output Total 600 200 Balance 876 1290 300 Intake: IV 1276 1290 D5-1/2Ns - 1,000 ml @ 83 1000 1000 mls/hr IV ASDIR TERESITA Rx#: [id number] HEPARIN-1/2NS 25,000 276 290 UNITS/500 25,000 units In 500 ml @ 1,400 UNIT/HR 28 mls/hr IVPB TITR TERESITA Rx#:[id number] Oral 200 500 Output: Urine 600 200 Void 600 200 Other: Voiding Method Urinal Urinal Urinal # Unmeasured Voids Void 2 Active Medications Acetaminophen (Tylenol -) 650 mg PO Q4H PRN PRN Reason: FEVER OR PAIN Last Admin: 09/09/17 10:35 Dose: 650 mg Atorvastatin Calcium (Lipitor -) 10 mg PO HS TERESITA Last Admin: 09/12/17 21:34 Dose: 10 mg Docusate Sodium (Colace -) 100 mg PO TID TERESITA Last Admin: 09/13/17 13:43 Dose: Not Given Heparin Sodium (Porcine) (Heparin -) 1,000 unit IVPUSH PRN PRN PRN Reason: Heparin Heparin Sodium (Porcine) (Heparin -) 5,000 unit IVPUSH PRN PRN PRN Reason: Heparin Last Admin: 09/13/17 09:30 Dose: 5,000 unit HEPARIN SOD,PORK IN 0.45% NACL (Heparin-1/2ns 25,000 Units/500) 25,000 units in 500 mls @ 28 mls/hr IVPB TITR TERESITA; 1,400 UNIT/HR PRN Reason: Protocol Last Admin: 09/13/17 12:18 Dose: 1,300 unit/hr, 26 mls/hr Dextrose/Sodium Chloride (D5-1/2ns -) 1,000 mls @ 83 mls/hr IV ASDIR [facility] Last Admin: 09/13/17 12:25 Dose: 83 mls/hr Morphine Sulfate (Morphine Sulfate) 2 mg IVPUSH Q4H PRN PRN Reason: PAIN Last Admin: 09/11/17 22:24 Dose: 2 mg Oxycodone HCl (Roxicodone -) 10 mg PO Q4H PRN PRN Reason: PAIN Polyethylene Glycol (Miralax (For Daily Use) -) 17 gm PO DAILY [facility] Last Admin: 09/13/17 09:45 Dose: Not Given Sodium Phosphate (Fleet Adult Rectal Enema -) 133 ml [place] DAILY PRN PRN Reason: CONSTIPATION Warfarin Sodium (Coumadin -) 5 mg PO DAILY@1800 [facility] Last Admin: 09/12/17 17:58 Dose: 5 mg Warfarin Sodium (Coumadin -) 3 mg PO ONCE@1800 ONE Stop: 09/13/17 18:01 CBC, BMP 09/13/17 07:45 09/13/17 07:45 inr - pending Physical Exam Constitutional: Yes: No Distress, Calm. comfortable Eyes: Yes: Conjunctiva Clear Neck: Yes: Supple Cardiovascular: Yes: Regular Rate and Rhythm Respiratory: Yes: CTA Bilaterally Gastrointestinal: Yes: Normal Bowel Sounds, Soft Edema: decreased left leg swelling/ redness-/ tenderness Neurological: Yes: Alert Psychiatric: Yes: Alert a/p continue to improve continue present care heparin/coumadin-- until INR is therapeutic will give extra dose today - if remains significantly low. oob- chair physical therapy discussed with Dr. Milan also today. will follow Problem List - Problems (1) Elevated lactic acid level Code(s): R79.89 - OTHER SPECIFIED ABNORMAL FINDINGS OF BLOOD CHEMISTRY (2) Dehydration Code(s): E86.0 - DEHYDRATION (3) Renal insufficiency, mild Code(s): N28.9 - DISORDER OF KIDNEY AND URETER, UNSPECIFIED (4) Cellulitis Code(s): L03.90 - CELLULITIS, UNSPECIFIED Qualifiers: Site of cellulitis: extremity Site of cellulitis of extremity: lower extremity (5) DVT (deep venous thrombosis) Code(s): I82.409 - ACUTE EMBOLISM AND THOMBOS UNSP DEEP VN UNSP LOWER EXTREMITY Qualifiers: DVT location: lower extremity Laterality: left (6) Prostate CA Code(s): C61 - MALIGNANT NEOPLASM OF PROSTATE (7) Spinal stenosis Code(s): M48.00 - SPINAL STENOSIS, SITE UNSPECIFIED (8) Constipation Code(s): K59.00 - CONSTIPATION, UNSPECIFIED
[2017-09-13 16:08] LABS: INR 1.29 (0.82-1.09); PROTHROMBIN TIME (PATIENT) 14.6 SEC (9.98-11.88)
[2017-09-13 16:39] LABS: ACTIVATED PTT 114.5 SECONDS (26.9-34.4)
[2017-09-13] MEDS: WARFARIN NA 5 MG TABLET (UD) PO SCH (17:38)
[2017-09-13] MEDS ORDERED: WARFARIN NA 3 MG TABLET PO ONE (18:00)
[2017-09-13] MEDS: ATORVASTATIN CA 10 MG TABLET (FP) PO SCH (21:40)
[2017-09-14] MEDS: DEXTROSE 5%-0.45% SALINE 1,000 ML IV SCH (00:59)
[2017-09-14] MEDS: DOCUSATE SODIUM 100 MG CAPSULE (FP) PO SCH ×4 (06:00→22:01)
[2017-09-14 08:22] LABS: HEMATOCRIT 39.3 % (35.4-49); HEMOGLOBIN 12.9 GM/dL (11.7-16.9); MCH 30.7 pg (25.7-33.7); MCHC 32.8 g/dl (32.0-35.9); MEAN CELL VOLUME 93.5 fl (80-96); MEAN PLT VOLUME 8.2 fl (7.5-11.1); PLATELET COUNT 277 K/MM3 (134-434); RDW 13.4 % (11.9-15.9); WHITE BLOOD COUNT 10.3 K/mm3 (4.0-10.0)
[2017-09-14 09:04] LABS: INR 1.4 (0.82-1.09); PROTHROMBIN TIME (PATIENT) 15.8 SEC (9.98-11.88)
[2017-09-14 09:09] LABS: ALBUMIN 2.8 g/dl (3.4-5.0); ANION GAP 11 (8-16); BILIRUBIN,TOTAL 0.6 mg/dL (0.2-1.0); BLOOD UREA NITROGEN 9 mg/dL (7-18); CALCIUM 8.4 mg/dL (8.5-10.1); CHLORIDE 105 mmol/L (98-107); CO2 25 mmol/L (21-32); CREATININE 1.1 mg/dL (0.7-1.3); GLUCOSE,RANDOM 99 mg/dL (74-106); SGOT/AST 31 U/L (15-37); SGPT/ALT 50 U/L (12-78); SODIUM 141 mmol/L (136-145); TOT PROT 6.5 g/dl (6.4-8.2)
[2017-09-14 09:10] LABS: ALK PHOS 49 U/L (45-117)
--- NOTE | 2017-09-14 11:54 | PN ---
Progress Note (short form) - Note Progress Note: PULMONARY AMBULATING IN [place] NO OVERALL CHANGE IN EXAM LABS/MEDS/NOTES/IMAGES REVIEWED INR 1.4 VTE extensive prostate ca spinal stenosis IV Heparin and Coumadin INR pending for today O2 as needed Local skin care ECHO reviewed Hortencia TAYLOR MD
[2017-09-14] MEDS: HEPARIN SOD,PORK IN 0.45% NACL 25,000 UNITS/500 ML INFUS.BAG IVPB SCH (12:00)
[2017-09-14] MEDS: POLYETHYLENE GLYCOL 3350 119 GM BTL PO SCH (13:30)
--- NOTE | 2017-09-14 13:41 | PN ---
Progress Note (short form) - Note Progress Note: Pt seen and examined. stable LE . O/E: Constitutional: Yes: Well Nourished, No Distress, Calm Eyes: Yes: Conjunctiva Clear HENT: Yes: Atraumatic, Normocephalic Neck: Yes: Supple, Trachea Midline Cardiovascular: Yes: Regular Rate and Rhythm Respiratory: Yes: Regular, CTA Bilaterally Gastrointestinal: Yes: Soft Extremities: Yes: Calf Tenderness, Other (LLE>RLE. swelling better,no erythema) Edema: Yes Edema: LLE: 2+, no signs of phlegmasia INR, PTT INR 1.40 (0.82-1.09) H 09/14/17 08:45 Last Vital Signs Temp Pulse Resp BP Pulse Ox 98.7 F 93 H 18 106/60 97 09/14/17 06:00 09/14/17 11:04 09/14/17 06:00 09/14/17 06:00 09/14/17 11:04 CBC, BMP 09/14/17 07:17 09/14/17 07:17 Current Medications Generic Name Dose Route Start Last Admin Trade Name Freq PRN Reason Stop Dose Admin Acetaminophen 650 mg 09/07/17 14:43 09/09/17 10:35 Tylenol - PO 650 mg Q4H PRN Administration FEVER OR PAIN Atorvastatin Calcium 10 mg 09/07/17 22:00 09/13/17 21:40 Lipitor - PO 10 mg HS TERESITA Administration Docusate Sodium 100 mg 09/07/17 22:00 09/14/17 13:30 Colace - PO Not Given TID TERESITA Heparin Sodium (Porcine) 1,000 unit 09/09/17 17:12 Heparin - IVPUSH PRN PRN Heparin Heparin Sodium (Porcine) 5,000 unit 09/09/17 17:12 09/13/17 09:30 Heparin - IVPUSH 5,000 unit PRN PRN Administration Heparin HEPARIN SOD,PORK IN 0.45% NACL 25,000 units in 500 mls @ 28 mls/hr 09/09/17 17 :24 09/13/17 17:46 Heparin-1/2ns 25,000 Units/500 IVPB 1,150 unit/hr TITR TERESITA 23 mls/hr Protocol Administration 1,400 UNIT/HR Dextrose/Sodium Chloride 1,000 mls @ 83 mls/hr 09/09/17 17:30 09/14/17 00:59 D5-1/2ns - IV 83 mls/hr ASDIR TERESITA Administration Polyethylene Glycol 17 gm 09/08/17 10:00 09/14/17 13:30 Miralax (For Daily Use) - PO Not Given DAILY [facility] Sodium Phosphate 133 ml 09/09/17 10:13 Fleet Adult Rectal Enema - [place] DAILY PRN CONSTIPATION Warfarin Sodium 5 mg 09/11/17 18:00 09/13/17 17:38 Coumadin - PO 5 mg DAILY@1800 TERESITA Administration Warfarin Sodium 2 mg 09/14/17 18:00 Coumadin - PO DAILY@1800 TERESITA DVT/PE; Second episode. Extensive AC with heparin , bridge to coumadin daily INR, today's 1.4 warfarin 10mg. will be assessed for NOACs in at least 2-3weeks. low grade temps, likely from clot burden, cx negative, continue to monitor Hypercoag w/u as an OP would need indefinite AC scans negative for mets. Problem List - Problems (1) DVT (deep venous thrombosis) Code(s): I82.409 - ACUTE EMBOLISM AND THOMBOS UNSP DEEP VN UNSP LOWER EXTREMITY Qualifiers: DVT location: lower extremity Laterality: left (2) Prostate CA Code(s): C61 - MALIGNANT NEOPLASM OF PROSTATE (3) Renal insufficiency, mild Code(s): N28.9 - DISORDER OF KIDNEY AND URETER, UNSPECIFIED (4) Sepsis Code(s): A41.9 - SEPSIS, UNSPECIFIED ORGANISM Qualifiers: Sepsis type: sepsis due to unspecified organism Qualified Code(s): A41.9 - Sepsis, unspecified organism (5) Thrombocytopenia Code(s): D69.6 - THROMBOCYTOPENIA, UNSPECIFIED
--- NOTE | 2017-09-14 14:36 | PN ---
Progress Note (short form) - Note Progress Note: better decreased pain/ swelling off abx walked in [address] Vital Signs Temp 98.7 F 09/14/17 06:00 Pulse 93 H 09/14/17 11:04 Resp 18 09/14/17 06:00 BP 106/60 09/14/17 06:00 Pulse Ox 97 09/14/17 11:04 Intake & Output 09/13/17 09/14/17 09/14/17 23:59 11:59 23:59 Intake Total 1813 1276 Output Total 200 Balance 1613 1276 Intake: IV 1113 1276 D5-1/2Ns - 1,000 ml @ 83 913 1000 mls/hr IV ASDIR TERESITA Rx#: [id number] HEPARIN-1/2NS 25,000 200 276 UNITS/500 25,000 units In 500 ml @ 1,400 UNIT/HR 28 mls/hr IVPB TITR TERESITA Rx#:[id number] Oral 700 Output: Urine 200 Void 200 Other: Voiding Method Urinal Active Medications Acetaminophen (Tylenol -) 650 mg PO Q4H PRN PRN Reason: FEVER OR PAIN Last Admin: 09/09/17 10:35 Dose: 650 mg Atorvastatin Calcium (Lipitor -) 10 mg PO HS TERESITA Last Admin: 09/13/17 21:40 Dose: 10 mg Docusate Sodium (Colace -) 100 mg PO TID TERESITA Last Admin: 09/14/17 13:30 Dose: Not Given Heparin Sodium (Porcine) (Heparin -) 1,000 unit IVPUSH PRN PRN PRN Reason: Heparin Heparin Sodium (Porcine) (Heparin -) 5,000 unit IVPUSH PRN PRN PRN Reason: Heparin Last Admin: 09/13/17 09:30 Dose: 5,000 unit HEPARIN SOD,PORK IN 0.45% NACL (Heparin-1/2ns 25,000 Units/500) 25,000 units in 500 mls @ 28 mls/hr IVPB TITR TERESITA; 1,400 UNIT/HR PRN Reason: Protocol Last Admin: 09/13/17 17:46 Dose: 1,150 unit/hr, 23 mls/hr Polyethylene Glycol (Miralax (For Daily Use) -) 17 gm PO DAILY TERESITA Last Admin: 09/14/17 13:30 Dose: Not Given Sodium Phosphate (Fleet Adult Rectal Enema -) 133 ml [place] DAILY PRN PRN Reason: CONSTIPATION Warfarin Sodium (Coumadin -) 5 mg PO DAILY@1800 TER[facility] Last Admin: 09/13/17 17:38 Dose: 5 mg Warfarin Sodium (Coumadin -) 2 mg PO DAILY@1800 TERESITA Warfarin Sodium (Coumadin -) 3 mg PO ONCE@1800 ONE Stop: 09/14/17 18:01 CBC, BMP 09/14/17 07:17 09/14/17 07:17 INR, PTT INR 1.40 (0.82-1.09) H 09/14/17 08:45 Physical Exam Constitutional: Yes: No Distress, Calm. comfortable. Eyes: Yes: Conjunctiva Clear Neck: Yes: Supple Cardiovascular: Yes: Regular Rate and Rhythm Respiratory: Yes: CTA Bilaterally Gastrointestinal: Yes: Normal Bowel Sounds, Soft Edema: decreased left leg swelling/ redness-/ tenderness Neurological: Yes: Alert Psychiatric: Yes: Alert a/p continue to improve. continue present care. heparin/coumadin-- until INR is therapeutic. will give extra dose today - oob- chair. physical therapy. will follow. Problem List - Problems (1) Elevated lactic acid level Code(s): R79.89 - OTHER SPECIFIED ABNORMAL FINDINGS OF BLOOD CHEMISTRY (2) Dehydration Code(s): E86.0 - DEHYDRATION (3) Renal insufficiency, mild Code(s): N28.9 - DISORDER OF KIDNEY AND URETER, UNSPECIFIED (4) Cellulitis Code(s): L03.90 - CELLULITIS, UNSPECIFIED Qualifiers: Site of cellulitis: extremity Site of cellulitis of extremity: lower extremity (5) DVT (deep venous thrombosis) Code(s): I82.409 - ACUTE EMBOLISM AND THOMBOS UNSP DEEP VN UNSP LOWER EXTREMITY Qualifiers: DVT location: lower extremity Laterality: left (6) Prostate CA Code(s): C61 - MALIGNANT NEOPLASM OF PROSTATE (7) Spinal stenosis Code(s): M48.00 - SPINAL STENOSIS, SITE UNSPECIFIED (8) Constipation Code(s): K59.00 - CONSTIPATION, UNSPECIFIED
[2017-09-14] MEDS: WARFARIN NA 2 MG TABLET (UD) PO SCH (17:22)
[2017-09-14] MEDS: WARFARIN NA 5 MG TABLET (UD) PO SCH (17:22)
[2017-09-14] MEDS ORDERED: WARFARIN NA 3 MG TABLET PO ONE (18:00)
[2017-09-14] MEDS: ATORVASTATIN CA 10 MG TABLET (FP) PO SCH (21:58)
[2017-09-14] MEDS ORDERED: MELATONIN 5 MG TABLETS PO ONE (22:40)
[2017-09-15] MEDS: DOCUSATE SODIUM 100 MG CAPSULE (FP) PO SCH ×4 (05:50→21:02)
[2017-09-15 08:15] LABS: INR 1.89 (0.82-1.09); PROTHROMBIN TIME (PATIENT) 21.4 SEC (9.98-11.88)
[2017-09-15 08:23] LABS: HEMATOCRIT 36.4 % (35.4-49); HEMOGLOBIN 11.9 GM/dL (11.7-16.9); MCH 30.4 pg (25.7-33.7); MCHC 32.6 g/dl (32.0-35.9); MEAN CELL VOLUME 93.4 fl (80-96); MEAN PLT VOLUME 8.5 fl (7.5-11.1); PLATELET COUNT 273 K/MM3 (134-434); RDW 13.3 % (11.9-15.9)
[2017-09-15 08:36] LABS: ALBUMIN 2.6 g/dl (3.4-5.0); ANION GAP 7 (8-16); BLOOD UREA NITROGEN 11 mg/dL (7-18); CHLORIDE 106 mmol/L (98-107); CO2 27 mmol/L (21-32); GLUCOSE,RANDOM 97 mg/dL (74-106); SODIUM 140 mmol/L (136-145)
[2017-09-15 08:40] LABS: ALK PHOS 47 U/L (45-117); BILIRUBIN,TOTAL 0.7 mg/dL (0.2-1.0); CREATININE 1.1 mg/dL (0.7-1.3); SGOT/AST 23 U/L (15-37); SGPT/ALT 46 U/L (12-78); TOT PROT 6.1 g/dl (6.4-8.2)
[2017-09-15] MEDS: POLYETHYLENE GLYCOL 3350 119 GM BTL PO SCH (10:47)
[2017-09-15] MEDS: HEPARIN SOD,PORK IN 0.45% NACL 25,000 UNITS/500 ML INFUS.BAG IVPB SCH (10:55)
--- NOTE | 2017-09-15 13:00 | PN ---
Progress Note (short form) - Note Progress Note: Pt seen and examined. feels much better he says walking more than before as per him decreased heaviness O/E: Constitutional: Yes: Well Nourished, No Distress, Calm Eyes: Yes: Conjunctiva Clear HENT: Yes: Atraumatic, Normocephalic Neck: Yes: Supple, Trachea Midline Cardiovascular: Yes: Regular Rate and Rhythm Respiratory: Yes: Regular, CTA Bilaterally Gastrointestinal: Yes: Soft Extremities: decreased swelling Edema: Yes Edema: LLE: 2+, no signs of phlegmasia Last Vital Signs Temp Pulse Resp BP Pulse Ox 98.8 F 105 H 20 109/62 98 09/15/17 09:00 09/15/17 09:00 09/15/17 09:00 09/15/17 09:00 09/15/17 09:00 CBC, BMP 09/15/17 06:30 09/15/17 06:30 INR, PTT INR 1.89 (0.82-1.09) H D 09/15/17 06:30 Current Medications Generic Name Dose Route Start Last Admin Trade Name Freq PRN Reason Stop Dose Admin Acetaminophen 650 mg 09/07/17 14:43 09/09/17 10:35 Tylenol - PO 650 mg Q4H PRN Administration FEVER OR PAIN Atorvastatin Calcium 10 mg 09/07/17 22:00 09/14/17 21:58 Lipitor - PO 10 mg HS TERESITA Administration Docusate Sodium 100 mg 09/07/17 22:00 09/15/17 06:49 Colace - PO 100 mg TID TERESITA Administration Heparin Sodium (Porcine) 1,000 unit 09/09/17 17:12 Heparin - IVPUSH PRN PRN Heparin Heparin Sodium (Porcine) 5,000 unit 09/09/17 17:12 09/13/17 09:30 Heparin - IVPUSH 5,000 unit PRN PRN Administration Heparin HEPARIN SOD,PORK IN 0.45% NACL 25,000 units in 500 mls @ 28 mls/hr 09/09/17 17 :24 09/15/17 10:55 Heparin-1/2ns 25,000 Units/500 IVPB 1,100 unit/hr TITR TERESITA 22 mls/hr Protocol Administration 1,400 UNIT/HR Polyethylene Glycol 17 gm 09/08/17 10:00 09/15/17 10:47 Miralax (For Daily Use) - PO Not Given DAILY [facility] Sodium Phosphate 133 ml 09/09/17 10:13 Fleet Adult Rectal Enema - [place] DAILY PRN CONSTIPATION Warfarin Sodium 5 mg 09/11/17 18:00 09/14/17 17:22 Coumadin - PO 5 mg DAILY@1800 TERESITA Administration Warfarin Sodium 2 mg 09/14/17 18:00 09/14/17 17:22 Coumadin - PO 2 mg DAILY@1800 TERESITA Administration DVT/PE heparin to coumadin INR 1.8 c/w same dose OOB to chair ambulation Problem List - Problems (1) DVT (deep venous thrombosis) Code(s): I82.409 - ACUTE EMBOLISM AND THOMBOS UNSP DEEP VN UNSP LOWER EXTREMITY Qualifiers: DVT location: lower extremity Laterality: left (2) Prostate CA Code(s): C61 - MALIGNANT NEOPLASM OF PROSTATE (3) Renal insufficiency, mild Code(s): N28.9 - DISORDER OF KIDNEY AND URETER, UNSPECIFIED (4) Sepsis Code(s): A41.9 - SEPSIS, UNSPECIFIED ORGANISM Qualifiers: Sepsis type: sepsis due to unspecified organism Qualified Code(s): A41.9 - Sepsis, unspecified organism (5) Thrombocytopenia Code(s): D69.6 - THROMBOCYTOPENIA, UNSPECIFIED
--- NOTE | 2017-09-15 14:19 | PN ---
Progress Note (short form) - Note Progress Note: pt continue to improve ambulating better decreased heaviness of legs Vital Signs Temp 98.8 F 09/15/17 09:00 Pulse 105 H 09/15/17 09:00 Resp 20 09/15/17 09:00 BP 109/62 09/15/17 09:00 Pulse Ox 98 09/15/17 09:00 Intake & Output 09/14/17 09/15/17 09/15/17 23:59 11:59 23:59 Intake Total 1157 252 500 Output Total 600 700 Balance 1157 -348 -200 Intake: IV 917 252 D5-1/2Ns - 1,000 ml @ 83 664 mls/hr IV ASDIR TERESITA Rx#: [id number] HEPARIN-1/2NS 25,000 253 252 UNITS/500 25,000 units In 500 ml @ 1,400 UNIT/HR 28 mls/hr IVPB TITR TERESITA Rx#:[id number] Oral 240 500 Output: Urine 600 700 Void 600 700 Other: Voiding Method Urinal Urinal Urinal Active Medications Acetaminophen (Tylenol -) 650 mg PO Q4H PRN PRN Reason: FEVER OR PAIN Last Admin: 09/09/17 10:35 Dose: 650 mg Atorvastatin Calcium (Lipitor -) 10 mg PO HS TERESITA Last Admin: 09/14/17 21:58 Dose: 10 mg Docusate Sodium (Colace -) 100 mg PO TID TERESITA Last Admin: 09/15/17 14:02 Dose: 100 mg Heparin Sodium (Porcine) (Heparin -) 1,000 unit IVPUSH PRN PRN PRN Reason: Heparin Heparin Sodium (Porcine) (Heparin -) 5,000 unit IVPUSH PRN PRN PRN Reason: Heparin Last Admin: 09/13/17 09:30 Dose: 5,000 unit HEPARIN SOD,PORK IN 0.45% NACL (Heparin-1/2ns 25,000 Units/500) 25,000 units in 500 mls @ 28 mls/hr IVPB TITR TERESITA; 1,400 UNIT/HR PRN Reason: Protocol Last Admin: 09/15/17 10:55 Dose: 1,100 unit/hr, 22 mls/hr Polyethylene Glycol (Miralax (For Daily Use) -) 17 gm PO DAILY TERESITA Last Admin: 09/15/17 10:47 Dose: Not Given Sodium Phosphate (Fleet Adult Rectal Enema -) 133 ml [place] DAILY PRN PRN Reason: CONSTIPATION Warfarin Sodium (Coumadin -) 5 mg PO DAILY@1800 TERESITA Last Admin: 09/14/17 17:22 Dose: 5 mg Warfarin Sodium (Coumadin -) 2 mg PO DAILY@1800 TERESITA Last Admin: 09/14/17 17:22 Dose: 2 mg CBC, BMP 09/15/17 06:30 09/15/17 06:30 INR, PTT INR 1.89 (0.82-1.09) H D 09/15/17 06:30 Physical Exam Constitutional: Yes: No Distress, Calm. comfortable Eyes: Yes: Conjunctiva Clear Neck: Yes: Supple Cardiovascular: Yes: Regular Rate and Rhythm Respiratory: Yes: CTA Bilaterally Gastrointestinal: Yes: Normal Bowel Sounds, Soft Edema: decreased left leg swelling/ redness-/ tenderness= much better. Neurological: Yes: Alert Psychiatric: Yes: Alert a/p continue to improve. continue present care. heparin/coumadin-- until INR is therapeutic oob- chair physical therapy anticipate d/c tomorrow. discussed with pt. Problem List - Problems (1) Elevated lactic acid level Code(s): R79.89 - OTHER SPECIFIED ABNORMAL FINDINGS OF BLOOD CHEMISTRY (2) Dehydration Code(s): E86.0 - DEHYDRATION (3) Renal insufficiency, mild Code(s): N28.9 - DISORDER OF KIDNEY AND URETER, UNSPECIFIED (4) Cellulitis Code(s): L03.90 - CELLULITIS, UNSPECIFIED Qualifiers: Site of cellulitis: extremity Site of cellulitis of extremity: lower extremity (5) DVT (deep venous thrombosis) Code(s): I82.409 - ACUTE EMBOLISM AND THOMBOS UNSP DEEP VN UNSP LOWER EXTREMITY Qualifiers: DVT location: lower extremity Laterality: left (6) Prostate CA Code(s): C61 - MALIGNANT NEOPLASM OF PROSTATE (7) Spinal stenosis Code(s): M48.00 - SPINAL STENOSIS, SITE UNSPECIFIED (8) Constipation Code(s): K59.00 - CONSTIPATION, UNSPECIFIED
[2017-09-15] MEDS: WARFARIN NA 5 MG TABLET (UD) PO SCH (17:16)
[2017-09-15] MEDS: WARFARIN NA 2 MG TABLET (UD) PO SCH (17:16)
[2017-09-15] MEDS: ATORVASTATIN CA 10 MG TABLET (FP) PO SCH (21:02)
[2017-09-16] MEDS: DOCUSATE SODIUM 100 MG CAPSULE (FP) PO SCH ×2 (05:40→14:44)
[2017-09-16] MEDS: POLYETHYLENE GLYCOL 3350 119 GM BTL PO SCH (09:08)
[2017-09-16 09:35] LABS: INR 2.63 (0.82-1.09); PROTHROMBIN TIME (PATIENT) 29.7 SEC (9.98-11.88)
--- NOTE | 2017-09-16 09:59 | DS ---
Physical Examination Vital Signs: Vital Signs Temperature 98.4 F 09/16/17 06:00 Pulse Rate 88 09/16/17 06:00 Respiratory Rate 20 09/16/17 06:00 Blood Pressure 106/66 09/16/17 06:00 O2 Sat by Pulse Oximetry (%) 98 09/15/17 21:00 Findings/Remarks: patient seen and examined today feels much better Able to walk much better with walker Decreased pain and heaviness in the legs Legs are much improved INR is therapeutic Denies chest pain or shortness of breath Constitutional: Yes: No Distress, Calm Eyes: Yes: Conjunctiva Clear Neck: Yes: Supple Cardiovascular: Yes: Regular Rate and Rhythm Respiratory: Yes: CTA Bilaterally Gastrointestinal: Yes: Normal Bowel Sounds, Soft Edema: LLE: 2+ (much improved) Neurological: Yes: Alert Psychiatric: Yes: Alert Labs: CBC, BMP 09/15/17 06:30 09/15/17 06:30 Discharge Summary Reason For Visit: SEPSIS,CELLULITIS DVT Current Active Problems Cellulitis (Acute) Constipation (Acute) DVT (deep venous thrombosis) (Acute) Dehydration (Acute) Elevated lactic acid level (Acute) Prostate CA (Acute) Pulmonary embolism (Acute) Renal insufficiency, mild (Acute) Sepsis (Acute) Spinal stenosis (Acute) Thrombocytopenia (Acute) Thrombocytopenia (Acute) Hospital Course: 66-year-old male send the ED with complaints of worsening left lower extremity redness swelling and pain pt recently seen in office for back pain urgent mri ls spine showed sever L4-5 Stenosis pt called me last night -- says legs are now getting swollen and heavier i advised to come to er right away- concern of dvt as he h/o dvt-- on right lower extremity- 2008--also filter was placed. and prostate cancer Patient denies chest pain presently, fever, chills, shortness of breath or palpitations. u/s confirmed extensive dvt left side with cellulitis -- given lovenox in er as well as clindamycin pt to be admitted to hospital lab work also showed increased wbcs/ lactic acid patient treated with antibiotics--- Lovenox and Coumadin Lovenox later changed to heparin Workup also showed pulmonary embolism Patient seen by pulmonary/hematology. Echocardiogram also done--- okay Patient treated with antibiotics also for cellulitis--- which resolved Patient also evaluated by the vascular surgeon-- Bone scan was also negative for metastases PSA was normal CAT scan of the abdomen--- showed likely adrenal adenoma MRI was ordered but not done--- patient would like to get it on an outpatient--- Patient now stable for discharge Will discharge on Coumadin patient to follow in office next week also going to follow with school clerk Meds reviewed and discussed Prescribed to her pharmacy as needed Discussed in detail with patient's family and patient Patient requesting discharge to ambulate and walker as patient has many steps in his office Discussed with bottle caser--they will assist Discharge time--35 minutes in documenting examining as well as coordinating care Condition: Improved - Instructions Referrals: Dayton Skaggs MD [Primary Care Provider] - Disposition: HOME - Home Medications Comprehensive Discharge Medication List: Ambulatory Orders Atorvastatin Ca [Lipitor] 10 mg PO HS 09/07/17 Linaclotide [Linzess] 145 mcg PO DAILY 09/07/17 Acetaminophen [Tylenol .Regular Strength -] 650 mg PO Q4H PRN tablet 09/16/17 Polyethylene Glycol 3350 [Miralax 119 gm Btl -] 17 gm PO DAILY bottle 09/16/17 Warfarin Na [Coumadin -] 5 mg PO DAILY@1800 #30 tablet 09/16/17
[2017-09-16 15:25] VITALS: BP 102/69; PULSE 97; TEMP 98.7
== END 2017-09-16 16:18 | disposition home or self-care (01) | DRG 872 ==
LOC: JER 11:42 → JERBED 14:42 → J6S 20:19
PROVIDERS: ADMIT Internal Medicine; ATTEND Internal Medicine
DX: A41.9 Sepsis, unspecified organism (principal); L03.116 Cellulitis of left lower limb; I82.4Z2 Acute embolism and thrombosis of unspecified deep veins of left distal lower extremity; K59.00 Constipation, unspecified; E86.0 Dehydration; M48.061 Spinal stenosis, lumbar region without neurogenic claudication; D69.6 Thrombocytopenia, unspecified; N28.9 Disorder of kidney and ureter, unspecified; C61 Malignant neoplasm of prostate
CPT/HCPCS: 36415; 71010-TC; 71260-TC; 74178-TC; 78306-TC; 80053; 81003; 81015; 82248; 82550; 82553; 82803; 83010; 83605; 83615; 83735; 84153; 84484; 85025; 85027; 85610; 85730; 86850; 86900; 86901; 87040; 87086; 93005; 93010; 93306-TC; 93926-TC; 93971-TC; 97116-GP; 97161-GP; 99285-25; A9503; J1644; Q9967

== ENCOUNTER 2023-12-10 08:03 | Day surgery (SDC) | payer OTHER ==
[2023-12-03 14:01] VITALS: BMI 25.8
[2023-12-10] MEDS ORDERED: LIDOCAINE 1% P/F 10 MG/ML VIAL ONE (08:16)
[2023-12-10] MEDS ORDERED: TETRACAINE 0.5% OPHTH SOLN 2 ML BOTTLE ONE (08:16)
[2023-12-10] MEDS ORDERED: BSS (NA/CA/MG/K) BALANCED SALT SOLUTION OPHTH SOLN 15 ML BOTTLE ONE (08:16)
[2023-12-10] MEDS ORDERED: CARBACHOL 0.01% INTRA-OCULAR 1.5 ML VIAL ONE (08:16)
[2023-12-10] MEDS ORDERED: NEO/POLYMYX B SULF/DEXAMETH OPHTHALMIC 5ML BOTTLE ONE (08:16)
[2023-12-10] MEDS: CIPROFLOXACIN 0.3% EYE DROPS 5 ML BOTTLE ONE (08:25)
[2023-12-10] MEDS: PHENYLEPHRINE 2.5% OPTHALMIC DROP 2ML BOTTLE ONE (08:25)
[2023-12-10] MEDS: TROPICAMIDE 1% OPHTH SOLN 15 ML BOTTLE ONE (08:25)
[2023-12-10] MEDS: CYCLOPENTOLATE 2% OPHTH SOLN 2 ML BOTTLE ONE (08:25)
[2023-12-10] MEDS ORDERED: MIDAZOLAM HCL 2 MG/2 ML SINGLE DOSE VIAL ONE (10:03)
[2023-12-10 10:57] VITALS: TEMP 97.9
[2023-12-10 11:00] VITALS: BP 120/72; PULSE 76; RESP 18
== END 2023-12-10 11:20 | disposition home or self-care (01) ==
LOC: FASU 08:03
PROVIDERS: ATTEND Ophthalmology
PROC: 08RK3JZ Replacement of Left Lens with Synthetic Substitute, Percutaneous Approach (ICD-10-PCS; principal; 2023-12-10 10:08)
DX: H26.8 Other specified cataract (principal)
CPT/HCPCS: 66984; V2632

== ENCOUNTER 2024-01-28 08:20 | Day surgery (SDC) | payer OTHER ==
[2024-01-19 10:34] VITALS: BMI 25.8
[2024-01-28] MEDS: CIPROFLOXACIN 0.3% EYE DROPS 5 ML BOTTLE ONE (00:55)
[2024-01-28 08:44] VITALS: RESP 18
[2024-01-28] MEDS ORDERED: LIDOCAINE 1% P/F 10 MG/ML VIAL ONE (08:49)
[2024-01-28] MEDS ORDERED: NEO/POLYMYX B SULF/DEXAMETH OPHTHALMIC 5ML BOTTLE ONE (08:49)
[2024-01-28] MEDS ORDERED: CARBACHOL 0.01% INTRA-OCULAR 1.5 ML VIAL ONE (08:49)
[2024-01-28] MEDS ORDERED: BSS (NA/CA/MG/K) BALANCED SALT SOLUTION OPHTH SOLN 15 ML BOTTLE ONE (08:49)
[2024-01-28] MEDS ORDERED: TETRACAINE 0.5% OPHTH SOLN 2 ML BOTTLE ONE (08:49)
[2024-01-28] MEDS: CYCLOPENTOLATE 2% OPHTH SOLN 2 ML BOTTLE ONE (08:55)
[2024-01-28] MEDS: TROPICAMIDE 1% OPHTH SOLN 15 ML BOTTLE ONE (08:55)
[2024-01-28] MEDS: PHENYLEPHRINE 2.5% OPTHALMIC DROP 2ML BOTTLE ONE (08:55)
[2024-01-28] MEDS ORDERED: MIDAZOLAM HCL 2 MG/2 ML SINGLE DOSE VIAL ONE (10:19)
[2024-01-28] MEDS ORDERED: LIDOCAINE HCL/PF 1% SDV 5ML VIAL ONE (10:21)
[2024-01-28 10:46] VITALS: PULSE 85; TEMP 97
[2024-01-28 12:04] VITALS: BP 140/80
== END 2024-01-28 12:00 | disposition home or self-care (01) ==
LOC: FASU 08:20
PROVIDERS: ATTEND Ophthalmology
PROC: 08RJ3JZ Replacement of Right Lens with Synthetic Substitute, Percutaneous Approach (ICD-10-PCS; principal; 2024-01-28 10:24)
DX: H26.8 Other specified cataract (principal)
CPT/HCPCS: 66984; V2632